=== PATIENT | male | born 1975 | race African-American/Black ===

== ENCOUNTER 2021-03-28 11:25 | Inpatient (IN) | payer BC, SELFPAY ==
[2021-03-28 12:33] LABS: Absolute Lymphocytes (CBC) 1.6 K/uL (0.7-4.9); Basophils % 1.4 % (0-1.3); Lymphocytes % 19.2 % (15.3-44.8); MPV 10.1 fL (7.6-11.3); RBC Red Blood Cell Count 4.63 M/uL (4.33-5.43)
[2021-03-28 12:46] LABS: Protime INR 1.09
[2021-03-28] MEDS ORDERED: cloNIDine HCL 0.1 MG TAB ONE (13:07)
[2021-03-28] MEDS ORDERED: AMLODIPINE 10 MG TAB ONE (13:07)
[2021-03-28 13:12] LABS: Albumin 3.6 g/dL (3.4-5.0); Bilirubin Direct 0.1 mg/dL (0-0.2); Bilirubin Total 0.5 mg/dL (0.2-1.0); Magnesium 1.8 mg/dL (1.8-2.4); Protein, Total 7.7 g/dL (6.4-8.2); Troponin (Emerg Dept Use Only) 0.09 ng/mL (0.0-0.045)
[2021-03-28 13:13] LABS: Potassium 2.9 mmol/L (3.5-5.1)
--- NOTE | 2021-03-28 13:47 | RAD REPORT ---
EXAM DESCRIPTION: RAD - Chest Single View - 03/28/2021 1:41 pm CLINICAL HISTORY: PAIN Chest pain. COMPARISON: Chest Single View dated 11/23/2016 FINDINGS: Portable technique limits examination quality. Interstitial lung prominence is present which may represent a viral infection or bronchitis. The hear t is normal in size. No displaced fractures.
[2021-03-28] MEDS ORDERED: KCL 20 MEQ/100 mL IVPB 20 MEQ/100 ML BAG IV ONE (13:52)
[2021-03-28] MEDS ORDERED: POTASSIUM CL SA 10 MEQ TAB PO ONE (13:52)
[2021-03-28] MEDS ORDERED: MORPHINE 4 MG/ML SYR ONE (13:57)
[2021-03-28] MEDS ORDERED: NA CHLORIDE 0.9% 250 ML ONE (14:19)
--- NOTE | 2021-03-28 14:51 | EDPHYS ---
Physician Documentation [facility] Name: John Bustos Age: 45 yrs Sex: Male : 1975 Arrival Date: 03/28/2021 Time: 11:30 Bed 19 Private MD: ED Physician West Munson HPI: 03/28 14:13 This 45 yrs old Black Male presents to ER via Ambulatory with complaints of Side Pain W jr8 Cough, Shortness Of Breath. 14:13 Onset: The symptoms/episode began/occurred gradually, 2 day(s) ago. Associated signs jr8 and symptoms: The patient has no apparent associated signs or symptoms. The patient has not experienced similar symptoms in the past. The patient has not recently seen a physician. This is a 45-year-old male patient that came to the emergency room today for increased pain on both his sides of his chest with shortness of breath and had fever development this morning. Also having substernal pressure in his chest. Patient with marked hypertension upon arrival. Has been out of his meds.. Historical: - Allergies: 11:49 PENICILLINS; jl7 - Home Meds: 11:49 clonidine HCl 0.1 mg Oral tab 1 tab 3 times per day [Active]; Lisinopril 12.5 BID Oral jl7 [Active]; - PMHx: 11:49 Hypertension; jl7 - Immunization history:: Adult Immunizations up to date, Client reports receiving the 2nd dose of the Covid vaccine. - Social history:: Smoking status: Patient reports the use of cigarette tobacco products. ROS: 14:13 Eyes: Negative for injury, pain, redness, and discharge, ENT: Negative for injury, jr8 pain, and discharge, Neck: Negative for injury, pain, and swelling, Abdomen/GI: Negative for abdominal pain, nausea, vomiting, diarrhea, and constipation, Back: Negative for injury and pain, MS/Extremity: Negative for injury and deformity, Skin: Negative for injury, rash, and discoloration, Neuro: Negative for headache, weakness, numbness, tingling, and seizure. 14:13 Cardiovascular: Positive for chest pain. 14:13 Respiratory: Positive for shortness of breath. 14:13 Constitutional: Positive for fever. jr8 Exam: 14:13 Eyes: Pupils equal round and reactive to light, extra-ocular motions intact. Lids and jr8 lashes normal. Conjunctiva and sclera are non-icteric and not injected. Cornea within normal limits. Periorbital areas with no swelling, redness, or edema. ENT: Nares patent. No nasal discharge, no septal abnormalities noted. Tympanic membranes are normal and external auditory canals are clear. Oropharynx with no redness, swelling, or masses, exudates, or evidence of obstruction, uvula midline. Mucous membranes moist. Neck: Trachea midline, no thyromegaly or masses palpated, and no cervical lymphadenopathy. Supple, full range of motion without nuchal rigidity, or vertebral point tenderness. No Meningismus. Cardiovascular: Tachycardic with a normal S1 and S2. No gallops, murmurs, or rubs. Normal PMI, no JVD. No pulse deficits. Respiratory: Lungs have equal breath sounds bilaterally, clear to auscultation and percussion. No rales, rhonchi or wheezes noted. No increased work of breathing, no retractions or nasal flaring. Abdomen/GI: Soft, non-tender, with normal bowel sounds. No distension or tympany. No guarding or rebound. No evidence of tenderness throughout. Back: No spinal tenderness. No costovertebral tenderness. Full range of motion. Skin: Warm, dry with normal turgor. Normal color with no rashes, no lesions, and no evidence of cellulitis. MS/ Extremity: Pulses equal, no cyanosis. Neurovascular intact. Full, normal range of motion. Neuro: Awake and alert, GCS 15, oriented to person, place, time, and situation. Cranial nerves II-XII grossly intact. Motor strength 5/5 in all extremities. Sensory grossly intact. 14:13 Chest/axilla: Inspection: normal, Palpation: tenderness, that is mild, of the right lateral anterior chest and left lateral anterior chest, that partially reproduces the patient's complaints. Vital Signs: 11:45 BP 175 / 124; Pulse 108; Resp 20; Temp 98.4; Pulse Ox 97% on R/A; Weight 126.1 kg; jl7 Height 6 ft. 2 in. (187.96 cm); Pain 9/10; 12:33 BP 175 / 124; Pulse 108; Resp 20; Temp 98.4; Pulse Ox 97% on R/A; kh1 14:22 BP 160 / 120; Pulse 68; Resp 20; Temp 98.0(TE); Pulse Ox 99% on R/A; kh1 11:45 Body Mass Index 35.69 (126.10 kg, 187.96 cm) jl7 MDM: 12:02 Patient medically screened. jr8 14:13 Data reviewed: vital signs, nurses notes, lab test result(s), EKG, radiologic studies, jr8 plain films. Data interpreted: Pulse oximetry: on room air is 97 %. Interpretation: normal. Counseling: I had a detailed discussion with the patient and/or guardian regarding: the historical points, exam findings, and any diagnostic results supporting the discharge/admit diagnosis, lab results, radiology results, the need for further work-up and treatment in the hospital. 14:24 ED course: Discussed with patient that he does have Covid. That there is concern now jr8 that his elevation in troponin is non-Covid related as he is not hypoxic and just began with other typical Covid symptoms. Patient had been markedly hypertensive here with also substernal chest pressure. Cannot fully rule out cardiac related ischemia given this picture. Advised that we should really sobs and have cardiology see him.. 03/28 11:52 Order name: Basic Metabolic Panel; Complete Time: 13:14 [facility] 03/28 11:52 Order name: CBC with Diff; Complete Time: 12:41 [facility] 03/28 11:52 Order name: LFT's; Complete Time: 13:14 [facility] 03/28 11:52 Order name: Magnesium; Complete Time: 13:14 [facility] 03/28 11:52 Order name: NT PRO-BNP; Complete Time: 13:14 [facility] 03/28 11:52 Order name: PT-INR; Complete Time: 13:07 03/28 11:52 Order name: Troponin (emerg Dept Use Only); Complete Time: 13:14 [facility] 03/28 14:05 Order name: SARS-COV-2 RT PCR; Complete Time: 14:16 [facility] 03/28 17:39 Order name: Hemoglobin A1c; Complete Time: 18:09 [facility] 03/28 19:08 Order name: Troponin I; Complete Time: 20:27 [facility] 03/28 19:14 Order name: Lipid Profile; Complete Time: 20:27 [facility] 03/28 19:26 Order name: T4 Free; Complete Time: 20:27 [facility] 03/28 19:26 Order name: Thyroid Stimulating Hormone; Complete Time: 20:27 [facility] 03/28 11:52 Order name: XRAY Chest (1 view); Complete Time: 14:04 [facility] 03/28 11:52 Order name: EKG; Complete Time: 11:55 [facility] 03/28 11:52 Order name: Cardiac monitoring; Complete Time: 12:35 [facility] 03/28 11:52 Order name: EKG - Nurse/Tech; Complete Time: 12:35 [facility] 03/28 11:52 Order name: IV Saline Lock; Complete Time: 12:35 [facility] 03/28 11:52 Order name: Labs collected and sent; Complete Time: 12:35 [facility] 03/28 11:52 Order name: O2 Per Protocol; Complete Time: 12:35 [facility] 03/28 11:52 Order name: O2 Sat Monitoring; Complete Time: 12:35 [facility] Administered Medications: 12:46 Drug: Norvasc (amlodipine) 10 mg Route: PO; kh1 12:46 Drug: cloNIDine 0.1 mg Route: PO; kh1 13:40 Drug: morphine 4 mg Route: IVP; Site: right antecubital; kh1 13:41 Drug: Potassium Chloride 40 mEq Route: PO; kh1 13:50 Drug: Potassium Chloride 20 mEq Route: IV; Rate: calculated rate; Site: left forearm; kh1 15:20 Drug: Aspirin Chewable Tablet 324 mg Route: PO; kh1 Disposition Summary: 03/28/21 14:51 Hospitalization Ordered Hospitalization Status: Observation [facility] Provider: Quan Munson Location: Telemetry/MedSur (observation) [facility] Condition: Stable [facility] Problem: new jr8 Symptoms: have improved [facility] Bed/Room Type: Standard [facility] Room Assignment: 413(03/28/21 17:14) dw Diagnosis - Subsequent non-ST elevation (NSTEMI) myocardial infarction jr8 - SARS-associated coronavirus as the cause of diseases classified elsewhere [facility] Forms: - Medication Reconciliation Form jr8 - SBAR form jr8 Addendum: 04/02/2021 08:25 Co-signature as Attending Physician, West Munson MD. r n 08:25 I agree with the assessment and plan of care. Attestation: The patient's history, exam r n findings, diagnostics, and a summary of any interventions or procedures was reviewed in detail with Raghu HOUSER. Signatures: Dispatcher [employer] EDMS Adriana Truong RN RN dw West Munson MD MD rn Roszak, Josh, PA PA jr8 Bart Page RN RN jl7 Silvana Martin 1 Corrections: (The following items were deleted from the chart) 03/28 11:50 11:49 Home Meds: unknown BP med; adama jl7 13:04 12:38 CORONAVIRUS+MR.LAB.BRZ ordered. EDPR EDMS 17:14 14:51 jr8 mihaela
--- NOTE | 2021-03-28 14:51 | ER ---
Nurse's Notes [facility] Name: John Bustos Age: 45 yrs Sex: Male : 1975 Arrival Date: 03/28/2021 Time: 11:30 Bed 19 Private MD: Diagnosis: Subsequent non-ST elevation (NSTEMI) myocardial infarction;SARS-associated coronavirus as the cause of diseases classified elsewhere Presentation: 03/28 11:45 Chief complaint: Patient states: Coughing x 1 day, reports bilateral side pain/soreness jl7 from coughing, intermittent left sided chest pain since 0400 this morning; suppose to take htn medication but hasn't taken it in 4 days. Coronavirus screen: Vaccine status: Patient reports receiving the 2nd dose of the covid vaccine. Date January 2021 Pfizer cough unrelated to allergies, Client presents with at least one sign or symptom that may indicate coronavirus-19. Standard/surgical mask placed on the client. Provider contacted for isolation considerations. Ebola Screen: No symptoms or risks identified at this time. Initial Sepsis Screen: Does the patient meet any 2 criteria? No. Patient's initial sepsis screen is negative. Does the patient have a suspected source of infection? No. Patient's initial sepsis screen is negative. Risk Assessment: Do you want to hurt yourself or someone else? Patient reports no desire to harm self or others. Onset of symptoms was March 27, 2021. Care prior to arrival: None. 11:45 Method Of Arrival: Ambulatory jl7 11:45 Acuity: AC 2 jl7 Triage Assessment: 11:49 General: Appears in no apparent distress. uncomfortable, Behavior is calm, cooperative, jl7 appropriate for age. Pain: Complains of pain in left breast Pain currently is 9 out of 10 on a pain scale. Respiratory: Reports cough that is Onset: The symptoms/episode began/occurred yesterday, the patient has mild shortness of breath. Historical: - Allergies: 11:49 PENICILLINS; jl7 - Home Meds: 11:49 clonidine HCl 0.1 mg Oral tab 1 tab 3 times per day [Active]; Lisinopril 12.5 BID Oral jl7 [Active]; - PMHx: 11:49 Hypertension; jl7 - Immunization history:: Adult Immunizations up to date, Client reports receiving the 2nd dose of the Covid vaccine. - Social history:: Smoking status: Patient reports the use of cigarette tobacco products. Screenin:34 Abuse screen: Denies threats or abuse. Nutritional screening: No deficits noted. kh1 Tuberculosis screening: No symptoms or risk factors identified. Fall Risk None identified. Assessment: 12:33 General: Appears in no apparent distress. uncomfortable, Behavior is calm, cooperative, kh1 appropriate for age. Pain: Complains of pain in abdomen Pain does not radiate. Pain currently is 10 out of 10 on a pain scale. Quality of pain is described as sharp, Aggravated by coughing. Cardiovascular: Reports nausea, shortness of breath, vomiting, Denies chest pain, Rhythm is sinus tachycardia. Respiratory: Airway is patent Respiratory effort is even, unlabored, Breath sounds are clear. 14:22 Reassessment: Patient appears in no apparent distress at this time. No changes from [facility] previously documented assessment. Patient and/or family updated on plan of care and expected duration. Pain level reassessed. Patient is alert, oriented x 3, equal unlabored respirations, skin warm/dry/pink. Vital Signs: 11:45 BP 175 / 124; Pulse 108; Resp 20; Temp 98.4; Pulse Ox 97% on R/A; Weight 126.1 kg; jl7 Height 6 ft. 2 in. (187.96 cm); Pain 9/10; 12:33 BP 175 / 124; Pulse 108; Resp 20; Temp 98.4; Pulse Ox 97% on R/A; kh1 14:22 BP 160 / 120; Pulse 68; Resp 20; Temp 98.0(TE); Pulse Ox 99% on R/A; kh1 11:45 Body Mass Index 35.69 (126.10 kg, 187.96 cm) jl7 ED Course: 11:30 Patient arrived in ED. ds1 11:49 Triage completed. jl7 11:49 Arm band placed on right wrist. jl7 11:51 Raghu Marshall PA is PHCP. jr8 11:52 West Munson MD is Attending Physician. jr8 12:32 Silvana Martin is Primary Nurse. kh1 12:34 Patient has correct armband on for positive identification. Bed in low position. Call [facility] light in reach. Side rails up X2. 12:34 No provider procedures requiring assistance completed. Inserted saline lock: 20 gauge kh1 in left antecubital area, using aseptic technique. Blood collected. 12:35 Basic Metabolic Panel Sent. kh1 12:35 LFT's Sent. kh1 12:36 Magnesium Sent. kh1 12:36 NT PRO-BNP Sent. kh1 12:36 PT-INR Sent. kh1 12:36 Troponin (emerg Dept Use Only) Sent. kh1 13:41 XRAY Chest (1 view) In Process Unspecified. EDMS 14:51 Quan Munson MD is Hospitalizing Provider. jr8 Administered Medications: 12:46 Drug: Norvasc (amlodipine) 10 mg Route: PO; kh1 12:46 Drug: cloNIDine 0.1 mg Route: PO; kh1 13:40 Drug: morphine 4 mg Route: IVP; Site: right antecubital; kh1 13:41 Drug: Potassium Chloride 40 mEq Route: PO; kh1 13:50 Drug: Potassium Chloride 20 mEq Route: IV; Rate: calculated rate; Site: left forearm; kh1 15:20 Drug: Aspirin Chewable Tablet 324 mg Route: PO; kh1 Outcome: 14:51 Decision to Hospitalize by Provider. jr8 19:37 Patient left the ED. bc5 Signatures: Dispatcher [employer] EDNV Phuong Brooks Raghu Bryne PA PA jr8 Bart Page RN RN Silvana Yee kh1 Mami Rao, RN RN bc5 Corrections: (The following items were deleted from the chart) 11:50 11:49 Home Meds: unknown BP med; adama galan 13:04 12:53 CORONAVIRUS+ drawn and sent. [facility] EDMS
[2021-03-28] MEDS ORDERED: LABETALOL 20 MG/4ML SYRINGE IV PRN (15:41)
[2021-03-28] MEDS ORDERED: ASPIRIN 81 MG CHEWABLE TABLET ONE ×2 (15:42→15:50)
[2021-03-28] MEDS ORDERED: NA CHLORIDE 0.9% 500 ML ONE (15:52)
[2021-03-28] MEDS ORDERED: GUAIFENESIN/CODEINE 5ML UCUP PO PRN (15:57)
[2021-03-28] MEDS ORDERED: ACETAMINOPHEN 500 MG TAB PO PRN (15:59)
[2021-03-28] MEDS ORDERED: ONDANSETRON 4 MG/2 ML VIAL IV PRN (15:59)
[2021-03-28] MEDS ORDERED: HEPARIN/D5W 25,000 UNIT/500 ML BAG IV PRN (16:00)
--- NOTE | 2021-03-28 16:15 | P.HP ---
Certification for Inpatient Patient admitted to: Inpatient With expected LOS: >2 Midnights Patient will require the following post-hospital care: None Practitioner: I am a practitioner with admitting privileges, knowledge of patient current condition, hospital course, and medical plan of care. Services: Services provided to patient in accordance with Admission requirements found in Title 42 Section 412.3 of the Code of Federal Regulations Patient History Date of Service: 03/28/21 Reason for admission: Chest pain History of Present Illness: Patient is 45-year-old male with a past medical history significant for hypertension, obesity presents with complaint of chest pain located in the substernal chest area and left chest wall. Patient rated pain as 9/10 and described pain as pressure in quality. Patient reported that initially he developed cough 4 days ago with associated signs and symptoms of diarrhea, lightheadedness, diaphoresis, loss of smell\taste, shortness of breath, headache, nausea and vomiting. Patient reports pain on the bilateral sides of his rib cage. Patient denies any other signs and symptoms. Symptoms are aggravated or relieved by nothing. Patient decided to present to the hospital due to worsening symptoms. Of note, patient has not been compliant with his home medications. Allergies Penicillins Allergy (Unverified 11/23/16 17:32) Unknown Home medications list reviewed: Yes - Past Medical/Surgical History Diabetic: No -: HTN -: Obesity Past Surgical History: Reviewed- Non-Contributory - Family History Family History: Reviewed- Non-Contributory (Reviewed and patient unaware of any family history.) - Social History Smoking Status: Current some day smoker Smoking therapy provided: Yes Patient receptive to therapy: Yes Alcohol use: Yes CD- Drugs: No Caffeine use: No Place of Residence: Home Review of Systems General: As per HPI Eyes: Unremarkable ENT: Unremarkable Respiratory: Cough, Shortness of Breath, SOB with Excertion Cardiovascular: Chest Pain, Light Headedness Gastrointestinal: Nausea, Vomiting, Diarrhea Genitourinary: Unremarkable Musculoskeletal: Unremarkable Integumentary: Unremarkable Neurological: Unremarkable Lymphatics: Unremarkable Physical Examination - Physical Exam General: Alert, In no apparent distress, Oriented x3 HEENT: Atraumatic, PERRLA, Mucous membr. moist/pink, EOMI, Sclerae nonicteric Neck: Supple, 2+ carotid pulse no bruit, No LAD, Without JVD or thyroid abnormality Respiratory: Diminished Cardiovascular: Regular rate/rhythm, Normal S1 S2 Capillary refill: >2 Seconds Gastrointestinal: Normal bowel sounds, No tenderness Musculoskeletal: No clubbing, No tenderness Integumentary: No rashes, No breakdown Neurological: Normal gait, Normal speech, Normal tone, Normal affect Lymphatics: No axilla or inguinal lymphadenopathy External genitalia: Deferred Rectal: Deferred - Studies Laboratory Data (last 24 hrs) 03/28/21 12:15: PT 12.5, INR 1.09 03/28/21 12:15: WBC 8.20, Hgb 13.0 L, Hct 39.0 L, Plt Count 255 03/28/21 12:15: Sodium 142, Potassium 2.9 L*, BUN 13, Creatinine 1.11, Glucose 117 H, Magnesium 1.8, Total Bilirubin 0.5, AST 22, ALT 36, Alkaline Phosphatase 90 Assessment and Plan - Plan --Chest pain of unclear etiology. NSTEMI is a possible differential. We will continue to trend serial troponins. Cardiology consulted. Echocardiogram to as sess LV\valvular function and wall motion. Telemetry to monitor for any significant arrhythmia. We will further recommendations from it project manager. --Suspected pericarditis. Sharepoint Designer Developer of the opinion that chest pain is likely pericarditis. Patient placed on colchicine. Echocardiogram pending. We will await further recommendation from it project manager. --Hypertension. Poorly controlled. Patient not compliant with home medications. Echocardiogram pending. Patient placed on home medications and labetalol as needed. --Hypokalemia. Replete as needed. Will reassess levels in a.m. --Class III obesity. Likely secondary to excess calories intake. Patient counseled on weight reduction, diet and exercise therapy. --COVID-19 pneumonia. Steerer consulted. Continue steroids, O2 therapy and oral supplements. Will await further recommendation from children's tutor nursery. --COVID-19 infection. Continue current treatment regimen. Continue contact and airborne precautions. --Moderate persistent asthma exacerbation. Continue current treatment regimen. Continue albuterol inhaler. --Nicotine dependence. Patient counseled on tobacco cessation. Refuses nicotine patch. --Elevated BNP. Echocardiogram pending to assess for CHF. Further management per it project manager. --DVT prophylaxis with Lovenox subQ I have had discussion about advanced directives with the patient during this hospital admission. Addressed code status and goals of care. Spent more than 30 minutes. Case discussed withpatient and nurse. The following document was completed using voice recognition software. This can produce industrial cafeteria manager errors that can at times significantly distort words and phrases. Please interpret any aspect of the note that is nonsensical in light of this fact. Discharge Plan: Home Plan to discharge in: 48 Hours - Advance Directives Does patient have a Living Will: No Does patient have a Durable POA for Healthcare: No - Code Status/Comfort Care Code Status Assessed: Yes Code Status: Full Code Critical Care: No
[2021-03-28] MEDS ORDERED: METHYLPREDNISOLONE 40 MG INJ IV SCH (17:00)
[2021-03-28] MEDS: HYDROCODONE/APAP 10/325 TAB PO PRN ×2 (17:28→22:19)
[2021-03-28] MEDS: METOPROLOL TAR 25 MG TAB PO SCH (17:28)
[2021-03-28] MEDS ORDERED: METOPROLOL TAR 25 MG TAB ONE (17:47)
[2021-03-28] MEDS ORDERED: LABETALOL HCL 100 MG/20 ML ONE (17:47)
[2021-03-28] MEDS ORDERED: HYDROCODONE/APAP 10/325 TAB ONE (17:47)
[2021-03-28] MEDS ORDERED: GUAIFENESIN/DM 5 ML UCUP ONE (17:55)
[2021-03-28 18:46] VITALS: BMI 35.6
[2021-03-28 19:25] LABS: Thyroid Stimulating Hormone 2.44 uIU/mL (0.360-3.740)
[2021-03-28] MEDS ORDERED: ALBUTEROL INHALER 60 PUFF/8 GM IH SCH (20:00)
[2021-03-28] MEDS: ASCORBIC ACID 500 MG TABLET PO SCH (20:40)
[2021-03-28] MEDS: cloNIDine HCL 0.1 MG TAB PO SCH (20:40)
[2021-03-28] MEDS: lisinopriL 10 MG TAB PO SCH (20:41)
[2021-03-28] MEDS: FAMOTIDINE 20 MG TAB PO SCH (20:59)
[2021-03-28] MEDS ORDERED: MELATONIN 5 MG TABLET PO SCH (21:00)
[2021-03-28] MEDS: DULERA 200/5 (MOMETASONE/FORMOTEROL) INHALER IH SCH (21:00)
[2021-03-28] MEDS: Enoxaparin 120 MG/0.8 ML SYR SQ ONE (21:00)
[2021-03-28] MEDS ORDERED: ATORVASTATIN 40 MG TAB PO SCH (21:00)
[2021-03-28] MEDS ORDERED: MELATONIN 5 MG TABLET PO ONE (21:36)
[2021-03-28] MEDS: COLCHICINE 0.6 MG TAB PO SCH (22:20)
[2021-03-29 00:41] VITALS: O2SAT 96
[2021-03-29 05:05] LABS: Absolute Lymphocytes (CBC) 2.5 K/uL (0.7-4.9); Basophils % 1.2 % (0-1.3); Lymphocytes % 30.8 % (15.3-44.8); MPV 10.4 fL (7.6-11.3); RBC Red Blood Cell Count 4.35 M/uL (4.33-5.43)
[2021-03-29 05:18] LABS: BUN Blood Urea Nitrogen 13 mg/dL (7-18); Bicarbonate 31 mmol/L (21-32); Glucose Level 113 mg/dL (74-106); NT PRO-BNP 676 pg/mL (<125); Sodium Level 141 mmol/L (136-145)
[2021-03-29] MEDS: METOPROLOL TAR 25 MG TAB PO SCH (06:02)
[2021-03-29] MEDS: KCL 20 MEQ/100 mL IVPB 20 MEQ/100 ML BAG IV SCH ×2 (06:02→08:30)
--- NOTE | 2021-03-29 06:14 | P.PN ---
Subjective Date of Service: 03/29/21 Primary Care Provider: none Chief Complaint: Chest pain Subjective: Improving Physical Examination - Vital Signs Temperature: 96.9 F Blood Pressure: 131/63 Pulse: 73 Respirations: 20 Pulse Ox (%): 96 - Studies Laboratory Data (last 24 hrs) 03/28/21 12:15: PT 12.5, INR 1.09 03/28/21 12:15: WBC 8.20, Hgb 13.0 L, Hct 39.0 L, Plt Count 255 03/28/21 12:15: Sodium 142, Potassium 2.9 L*, BUN 13, Creatinine 1.11, Glucose 117 H, Magnesium 1.8, Total Bilirubin 0.5, AST 22, ALT 36, Alkaline Phosphatase 90 Assessment & Plan Discharge Plan: Home Plan to discharge in: 24 Hours Physician Review Additional Text: COVID: Positive CXR: COMPARISON: Chest Single View dated 11/23/2016 FINDINGS: Portable technique limits examination quality. Interstitial lung prominence is present which may represent a viral infection or bronchitis. The heart is normal in size. No displaced fractures. Physical Exam: General: Alert, In no apparent distress, Oriented x3 HEENT: Atraumatic, PERRLA, Mucous membr. moist/pink, EOMI, Sclerae nonicteric Neck: Supple, 2+ carotid pulse no bruit, No LAD, Without JVD or thyroid abnormality Respiratory: Clear. Currently on room air. Cardiovascular: Regular rate/rhythm, Normal S1 S2 Capillary refill: >2 Seconds Gastrointestinal: Normal bowel sounds, No tenderness Musculoskeletal: No clubbing, No tenderness Integumentary: No rashes, No breakdown Neurological: Normal gait, Normal speech, Normal tone, Normal affect Lymphatics: No axilla or inguinal lymphadenopathy External genitalia: Deferred Rectal: Deferred Impression: Chest pain likely pericarditis COVID-19 asymptomatic Asthma Tobacco and alcohol use Hypertension uncontrolled GERD noncompliance with medication Plan: Chest pain likely pericarditis: Patient doing well at this time. Case discussed with cardiology. Will transition steroids to oral. Overall stable. No intervention required. Await echocardiogram. Will discuss further with cardiology. Anticipate discharge today. Adjustments in blood pressure medication performed with good improvement.: COVID-19 asymptomatic: Overall stable. Patient on room air. Patient will continue with prednisone and supplementation at discharge. Continue Covid recommendations. Asthma: Continue with prednisone taper. Recommend Advair at discharge along with albuterol. Recommend follow-up with pulmonology as an outpatient. Tobacco and alcohol use: Cessation education provided Hypertension uncontrolled: Blood pressure improved with changes. Patient will continue with clonidine 0.1 mg 1 pill 3 times a day, lisinopril 10 mg 1 pill twice daily and metoprolol 25 mg 1 pill twice daily. Continue to titrate for better control. GERD: We will provide Pepcid 20 mg twice daily Noncompliance with medication: Compliance with his medications and follow-up will be important. DVT prophylaxis: Lovenox CODE STATUS: Full code Advance care planning: Home at discharge Time Spent Managing Pts Care (In Minutes): 55
[2021-03-29 07:08] LABS: C-Reactive Protein 9.61 mg/L (<3.00); Ferritin 115.7 ng/mL (26-388)
[2021-03-29] MEDS ORDERED: NA CHLORIDE 0.9% 250 ML ONE (07:23)
[2021-03-29] MEDS: cloNIDine HCL 0.1 MG TAB PO SCH (08:42)
[2021-03-29] MEDS: lisinopriL 10 MG TAB PO SCH (08:43)
[2021-03-29] MEDS: FAMOTIDINE 20 MG TAB PO SCH (08:43)
[2021-03-29] MEDS: ASCORBIC ACID 500 MG TABLET PO SCH (08:43)
[2021-03-29] MEDS: DULERA 200/5 (MOMETASONE/FORMOTEROL) INHALER IH SCH (08:44)
[2021-03-29] MEDS: HYDROCODONE/APAP 10/325 TAB PO PRN (08:54)
[2021-03-29] MEDS ORDERED: ASPIRIN 81 MG CHEWABLE TABLET PO SCH (09:00)
[2021-03-29] MEDS ORDERED: VITAMIN D 5,000 UNIT CAP PO SCH (09:00)
[2021-03-29] MEDS ORDERED: ZINC SULFATE 220 MG CAP PO SCH (09:00)
[2021-03-29] MEDS ORDERED: THIAMINE HCL 100 MG TABLET PO SCH (09:00)
[2021-03-29] MEDS ORDERED: ENOXAPARIN 40 MG/0.4 ML SQ SCH ×2 (09:00)
--- NOTE | 2021-03-29 09:44 | P.DS ---
Admission Date: 03/28/21 Discharge Date: 03/29/21 Primary Care Provider: none Disposition: ROUTINE DISCHARGE Discharge Condition: GOOD Reason for Admission: Chest pain Consultations: Cardiology-Dr. Prajapati Procedures: COVID: Positive CXR: COMPARISON: Chest Single View dated 11/23/2016 FINDINGS: Portable technique limits examination quality. Interstitial lung prominence is present which may represent a viral infection or bronchitis. The heart is normal in size. No displaced fractures. Medical Problem List: Chest pain likely pericarditis COVID-19 asymptomatic Asthma Tobacco and alcohol use Hypertension uncontrolled GERD Hyperlipidemia Prediabetes Noncompliance with medication Brief History of Present Illness: 85-year-old -[place] male with history of hypertension, tobacco use, alcohol use, and asthma. Patient presented with chest pain mainly to the left side. It is associated with cough. Patient came to the ER for further evaluation. Patient was positive for Covid. Patient stable on room air. Patient admitted for further evaluation and treatment. Patient reports noncompliant with his hypertensive medication. Blood pressure elevated. Hospital Course: Patient presented with chest pain. Patient was admitted for further evaluation and observation. Case discussed with cardiology. Cardiology suspected pericarditis. Patient was placed on IV steroids with improvement. Echocardiogram performed. No further intervention required. Blood pressures were elevated requiring reinitiation of his medications and additional medication. Blood pressure now better controlled. At discharge patient without significant chest pain. At discharge patient will continue with prednisone 20 mg 1 pill twice daily for 7 days then 1 pill once daily for 7 days. Recommend vitamin C 500 mg 1 pill 3 times a day, vitamin D 2000 units daily, thiamine 100 mg 1 pill daily, and zinc 220 mg daily. Patient will continue with Covid 19 recommendations including 10-day isolation, facemask use, handwashing and social distancing. Recommend follow-up with cardiology within 1 to 2 weeks to follow- up his hospitalization. Compliance with his medications addressed in detail. Patient will need to establish care with a PCP in the area to follow-up this hospitalization and continue his care. Patient with hypertension uncontrolled due to noncompliance. Compliance was addressed in detail. Patient understands. At discharge patient will continue with clonidine 0.1 mg 1 pill 3 times a day, lisinopril 10 mg 1 pill twice daily, and metoprolol 25 mg 1 pill twice daily. Patient will also continue with aspirin 81 mg daily. Recommend to maintain blood pressure less than 130/80. Further adjustment in medication may be required. This can be done with the help of his PCP or cardiology. Patient will need to establish care with a PCP in the area. A list of providers will be provided. Patient with asthma. Patient treated with IV steroids with improvement. At discharge patient will continue with prednisone 20 mg 1 pill twice daily for 7 days then 1 pill once daily for 7 days. At discharge patient will also be provided Symbicort 2 puffs twice daily and albuterol 2 puffs 3 times a day as needed for shortness of breath. Recommend follow-up with pulmonology as an outpatient to further monitor and adjust medication. Patient with tobacco and alcohol use. Cessation education provided. Patient understands that he needs to quit both due to his current medical problems. Patient with hyperlipidemia. LDL 127. Patient was started on medication. At discharge patient will continue with Lipitor 20 mg 1 pill daily. Recommend to recheck fasting lipid panel in 4 to 6 weeks to monitor his progress. Further adjustment can be done by his PCP or cardiology. Patient with GERD. At discharge patient may continue with Pepcid 20 mg 1 pill twice daily. GERD education provided. Patient with prediabetes. Hemoglobin A1c 6.0. No medication is needed at this time. Education on prediabetes provided. Recommend to recheck hemoglobin A1c in 3 to 6 months to monitor his progress. Patient may require medication in the future. Recommend to establish care with a PCP to further monitor and address. Patient with history of noncompliance with medication and follow-up. Patient will be given a list of providers in the area to establish care. Compliance with his medication addressed in detail. Vital Signs/Physical Exam: Temp Pulse Resp BP Pulse Ox 96.9 F 73 20 131/63 96 03/29/21 09:38 03/29/21 09:38 03/29/21 09:38 03/29/21 09:38 03/29/21 09:38 General: Alert, In no apparent distress, Oriented x3, Cooperative HEENT: Atraumatic Neck: Supple Respiratory: Clear to auscultation bilaterally, Normal air movement Cardiovascular: Normal pulses, Regular rate/rhythm Gastrointestinal: Normal bowel sounds, No ascites Musculoskeletal: No erythema, No tenderness, No warmth Integumentary: No tenderness/swelling Neurological: Normal speech, Normal strength at 5/5 x4 extr, Normal tone Laboratory Data at Discharge: WBC 8.20 K/uL (4.3-10.9) 03/29/21 04:09 Hgb 12.4 g/dL (13.6-17.9) L 03/29/21 04:09 Hct 37.0 % (39.6-49.0) L 03/29/21 04:09 Plt Count 233 K/uL (152-406) 03/29/21 04:09 PT 12.5 SECONDS (9.5-12.5) 03/28/21 12:15 INR 1.09 03/28/21 12:15 Sodium 141 mmol/L (136-145) 03/29/21 04:09 Potassium Cancelled 03/29/21 Unknown BUN 13 mg/dL (7-18) 03/29/21 04:09 Creatinine 0.97 mg/dL (0.55-1.3) 03/29/21 04:09 Glucose 113 mg/dL (74-106) H 03/29/21 04:09 Magnesium 1.8 mg/dL (1.8-2.4) 03/28/21 12:15 Total Bilirubin 0.5 mg/dL (0.2-1.0) 03/28/21 12:15 AST 22 U/L (15-37) 03/28/21 12:15 ALT 36 U/L (12-78) 03/28/21 12:15 Alkaline Phosphatase 90 U/L (45-117) 03/28/21 12:15 Troponin I 0.08 ng/mL (0.0-0.045) H 03/29/21 00:07 Triglycerides 91 mg/dL (<150) 03/28/21 18:36 Cholesterol 186 mg/dL (<200) 03/28/21 18:36 HDL Cholesterol 41 mg/dL (40-60) 03/28/21 18:36 Cholesterol/HDL Ratio 4.54 03/28/21 18:36 Home Medications: Albuterol Inhaler [Ventolin Inhaler*] 2 puff IH TID PRN #1 hfa.aer.ad 03/29/21 Ascorbic Acid [Vitamin C*] 500 mg PO TID #90 tablet 03/29/21 Aspirin [Aspirin EC 81 MG] 81 mg PO DAILY #30 tablet. 03/29/21 Atorvastatin Calcium [Lipitor] 20 mg PO BEDTIME #30 tab 03/29/21 Budesonide/Formoterol Fumarate [Symbicort 160-4.5 Mcg Inhaler] 2 puff IH BID #1 hfa.aer.ad 03/29/21 Famotidine [Pepcid*] 20 mg PO BID #60 tab 03/29/21 Metoprolol Tartrate [Lopressor*] 25 mg PO BID 6AM 6PM #60 tab 03/29/21 Thiamine HCl [Vitamin B-1*] 100 mg PO DAILY #30 tablet 03/29/21 Zinc Sulfate [Zinc Sulfate*] 220 mg PO DAILY #30 cap 03/29/21 cloNIDine HCL [Catapres*] 0.1 mg PO TID #90 tab 03/29/21 lisinopriL [Prinivil*] 10 mg PO BID #60 tab 03/29/21 predniSONE [Prednisone*] 20 mg PO SEECOM #21 tab 03/29/21 New Medications: Aspirin [Aspirin EC 81 MG] 81 mg PO DAILY #30 tablet. cloNIDine HCL [Catapres*] 0.1 mg PO TID #90 tab Atorvastatin Calcium [Lipitor] 20 mg PO BEDTIME #30 tab Metoprolol Tartrate [Lopressor*] 25 mg PO BID 6AM 6PM #60 tab Famotidine [Pepcid*] 20 mg PO BID #60 tab predniSONE [Prednisone*] 20 mg PO SEECOM #21 tab lisinopriL [Prinivil*] 10 mg PO BID #60 tab Budesonide/Formoterol Fumarate [Symbicort 160-4.5 Mcg Inhaler] 2 puff IH BID #1 hfa.aer.ad Albuterol Inhaler [Ventolin Inhaler*] 2 puff IH TID PRN #1 hfa.aer.ad PRN Reason: Shortness Of Breath Thiamine HCl [Vitamin B-1*] 100 mg PO DAILY #30 tablet Ascorbic Acid [Vitamin C*] 500 mg PO TID #90 tablet Zinc Sulfate [Zinc Sulfate*] 220 mg PO DAILY #30 cap Physician Discharge Instructions: Patient presented with chest pain. Patient was admitted for further evaluation and observation. Case discussed with cardiology. Cardiology suspected pericarditis. Patient was placed on IV steroids with improvement. Echocardiogram performed. No further intervention required. Blood pressures were elevated requiring reinitiation of his medications and additional medication. Blood pressure now better controlled. At discharge patient without significant chest pain. At discharge patient will continue with prednisone 20 mg 1 pill twice daily for 7 days then 1 pill once daily for 7 days. Recommend vitamin C 500 mg 1 pill 3 times a day, vitamin D 2000 units daily, thiamine 100 mg 1 pill daily, and zinc 220 mg daily. Patient will continue with Covid 19 recommendations including 10-day isolation, facemask use, handwashing and social distancing. Recommend follow-up with cardiology within 1 to 2 weeks to follow- up his hospitalization. Compliance with his medications addressed in detail. Patient will need to establish care with a PCP in the area to follow-up this hospitalization and continue his care. Patient with hypertension uncontrolled due to noncompliance. Compliance was addressed in detail. Patient understands. At discharge patient will continue with clonidine 0.1 mg 1 pill 3 times a day, lisinopril 10 mg 1 pill twice daily, and metoprolol 25 mg 1 pill twice daily. Patient will also continue with aspirin 81 mg daily. Recommend to maintain blood pressure less than 130/80. Further adjustment in medication may be required. This can be done with the help of his PCP or cardiology. Patient will need to establish care with a PCP in the area. A list of providers will be provided. Patient with asthma. Patient treated with IV steroids with improvement. At discharge patient will continue with prednisone 20 mg 1 pill twice daily for 7 days then 1 pill once daily for 7 days. At discharge patient will also be provided Symbicort 2 puffs twice daily and albuterol 2 puffs 3 times a day as needed for shortness of breath. Recommend follow-up with pulmonology as an outpatient to further monitor and adjust medication. Patient with tobacco and alcohol use. Cessation education provided. Patient understands that he needs to quit both due to his current medical problems. Patient with hyperlipidemia. LDL 127. Patient was started on medication. At discharge patient will continue with Lipitor 20 mg 1 pill daily. Recommend to recheck fasting lipid panel in 4 to 6 weeks to monitor his progress. Further adjustment can be done by his PCP or cardiology. Patient with GERD. At discharge patient may continue with Pepcid 20 mg 1 pill twice daily. GERD education provided. Patient with prediabetes. Hemoglobin A1c 6.0. No medication is needed at this time. Education on prediabetes provided. Recommend to recheck hemoglobin A1c in 3 to 6 months to monitor his progress. Patient may require medication in the future. Recommend to establish care with a PCP to further monitor and address. Patient with history of noncompliance with medication and follow-up. Patient will be given a list of providers in the area to establish care. Compliance with his medication addressed in detail. Diet: AHA Activity: Ad tami Followup: NONE,NONE [Primary Care Provider] - Time spent managing pt's care (in minutes): 55
[2021-03-29] MEDS ORDERED: PNEUMOCOCCAL VACCINE 0.5 ML IMVAC ONE (11:00)
[2021-03-29 13:08] VITALS: BP 133/83; TEMP 97.9
[2021-03-29] MEDS: COLCHICINE 0.6 MG TAB PO SCH (13:17)
--- NOTE | 2021-03-30 07:55 | ECHO ---
HEIGHT: 6 ft 2 in WEIGHT: 278 lb 0.047 oz DATE OF STUDY: 03/29/[address]: Topher Garcia 2-DIMENSIONAL: YES M.MODE: YES DOPPLER: YES COLOR FLOW: YES TDS: PORTABLE: DEFINITY: BUBBLE STUDY: DIAGNOSIS: CHEST PAIN CARDIAC HISTORY: CATHERIZATION: YES SURGERY: NO PROSTHETIC VALVE: NO PACEMAKER: NO MEASUREMENTS (cm) DIASTOLIC (NORMALS) SYSTOLIC (NORMALS) IVSd 1.3 (0.6-1.2) LA Diam 3.3 (1.9-4.0) LVEF 69% LVIDd 5.1 (3.5-5.7) LVIDs 3.1 (2.0-3.5) %FS 39% LVPWd 1.4 (0.6-1.2) Ao Diam 2.7 (2.0-3.7) 2 DIMENSIONAL ASSESSMENT: RIGHT ATRIUM: NORMAL LEFT ATRIUM: NORMAL RIGHT VENTRICLE: NORMAL LEFT VENTRICLE: NORMAL TRICUSPID VALVE: NORAML MITRAL VALVE: NORMAL PULMONIC VALVE: NORMAL AORTIC VALVE: NORMAL PERICARDIAL EFFUSION: NONE AORTIC ROOT: NORMAL LEFT VENTRICULAR WALL MOTION: NORMAL DOPPLER/COLOR FLOW: NORMAL COMMENTS: NORMAL LEFT VENTRICULAR EJECTION FRACTION 60-65%. NORMAL WALL MOTION. TECHNOLOGIST: AUSTIN PARISI
--- NOTE | 2021-04-02 13:19 | CON ---
Date of Consultation: 03/28/2021 Reason For Consultation: Admitted to Dr. Tijerina on 03/28/2021 for chest pain. I saw the patient on 03/28/2021. History Of Present Illness: Mr. Bustos is a 45-year-old black male with history of hypertension for which he is supposed to be taking clonidine 3 times a day and lisinopril twice a day. Came in with c hest pain, more site pain, scattered chest pain with some shortness of breath, some fever. No cough. No chills. Denied PND, orthopnea, pedal edema, palpitation, or syncope. He has already ruled out for [place], but when he came in, his blood pressure was 175/124. Past Medical History: As stated above. Allergies: INCLUDE PENICILLIN. Review of Systems: Negative. Social History: Negative. Family History: Noncontributory. Physical Examination: Vital Signs: He was hypertensive as stated earlier, but the second pressure was 140/65. HEENT: Negative. Neck: Supple with no bruit. Chest: Clear to auscultation and percussion. Cardiac: Revealed a regular rhythm and rate. No murmurs, gallops, or rubs. Abdomen: Benign. Extremities: Revealed no clubbing, cyanosis, or edema. Diagnostic Data: He was COVID positive. Troponin of 0.09. Potassium is 2.9. BNP was 840. EKG was normal. Chest x-ray was normal. Impression And Plan: 1.Positive COVID. 2.Atypical chest pain. 3.Hypertension, poorly controlled. 4.Dyslipidemia. The patient is now on aspirin, Plavix, colchicine, labetalol, metoprolol, thiamine, zinc, clonidine, and lisinopril. I think he should have an echocardiogram, watch his blood pressure , correct his potassium. We will continue to follow him as needed if the echocardiogram is normal. If the echocardiogram is abnormal, we will consider a heart catheterization. FABIOLA/ARTHUR Voice ID: [id number] Report ID: [id number]
== END 2021-03-29 13:30 | disposition home or self-care (01) | DRG 314 ==
LOC: ER 11:25 → ERHOLD 15:20 → 4TH 19:14
PROVIDERS: ADMIT Family Medicine; ATTEND Family Medicine
DX: I31.9 Disease of pericardium, unspecified (principal); U07.1 COVID-19; J45.909 Unspecified asthma, uncomplicated; F17.210 Nicotine dependence, cigarettes, uncomplicated; Z72.89 Other problems related to lifestyle; I10 Essential (primary) hypertension; K21.9 Gastro-esophageal reflux disease without esophagitis; E78.5 Hyperlipidemia, unspecified; R73.03 Prediabetes; E66.9 Obesity, unspecified; Z68.35 Body mass index [BMI] 35.0-35.9, adult; E87.6 Hypokalemia; Z91.14 Patient's other noncompliance with medication regimen; Z88.0 Allergy status to penicillin; Z23 Encounter for immunization
CPT/HCPCS: 36415; 71045; 80048; 80061; 80076; 82728; 83036; 83735; 83880; 84439; 84443; 84484; 85025; 85610; 86140; 90471; 90732; 93005; 93306; 99284; J1650; J3480; J7040; J7050; J7606; U0003

== ENCOUNTER 2022-01-03 08:57 | Emergency (ER) | payer SELFPAY ==
[2022-01-03] MEDS ORDERED: cloNIDine HCL 0.1 MG TAB ONE (09:27)
[2022-01-03] MEDS ORDERED: lisinopriL 20 MG TAB ONE (09:27)
[2022-01-03] MEDS ORDERED: KETOROLAC 30 MG/ML INJ ONE (09:27)
--- NOTE | 2022-01-03 10:11 | RAD REPORT ---
EXAM DESCRIPTION: RAD - Knee Left 3 View - 01/03/2022 9:47 am CLINICAL HISTORY: Left knee pain FINDINGS: No fracture or dislocation is seen. Minimal narrowing medial joint space
--- NOTE | 2022-01-03 11:09 | RAD REPORT ---
EXAM DESCRIPTION: US - Extremity Nonvascular Complete - 01/03/2022 11:01 am CLINICAL HISTORY: Left knee pain COMPARISON: X-ray January 08, 2022 FINDINGS: Edema is present within the anterior soft tissue. A hematoma is not visualized. No abscess noted Small joint effusion IMPRESSION: Edema within the anterior soft tissue No hematoma seen Small joint effusion
--- NOTE | 2022-01-03 11:19 | ER ---
Nurse's Notes [facility] Name: John Bustos Age: 46 yrs Sex: Male : 1975 Arrival Date: 01/03/2022 Time: 08:59 Bed 20 Private MD: Diagnosis: Pain in left knee;Contusion of left knee Presentation: 01/03 09:12 Chief complaint: Patient states: L knee pain that began yesterday after falling from ss standing. Pt reports that the pain is worse this morning. Coronavirus screen: Client denies travel out of the [place] in the last 14 days. Ebola Screen: Patient denies exposure to infectious person. Patient denies travel to an Ebola-affected area in the 21 days before illness onset. Initial Sepsis Screen: Does the patient meet any 2 criteria? No. Patient's initial sepsis screen is negative. Does the patient have a suspected source of infection? No. Patient's initial sepsis screen is negative. Risk Assessment: Do you want to hurt yourself or someone else? Patient reports no desire to harm self or others. Onset of symptoms was January 02, 2022. 09:12 Method Of Arrival: Ambulatory ss 09:12 Acuity: AC 4 Triage Assessment: 11:53 General: Appears in no apparent distress. comfortable, Behavior is calm, cooperative, ld1 appropriate for age. Pain: Complains of pain in left leg. Historical: - Allergies: 09:14 PENICILLINS; ss - Home Meds: 09:14 "Supposed to take BP meds" [Active]; ss - PMHx: 09:14 Hypertension; Asthma; ss - PSHx: 09:14 cardiac cath, no stents placed; ss - Immunization history:: Adult Immunizations up to date. - Social history:: Smoking status: Patient reports the use of cigarette tobacco products, 1-2 cigarettes/ day. Screenin:42 Abuse screen: Denies threats or abuse. Denies injuries from another. Nutritional ld1 screening: No deficits noted. Tuberculosis screening: No symptoms or risk factors identified. Fall Risk None identified. Assessment: 09:42 Reassessment: X ray at bedside. Pt denies concerns at this time. ld1 11:51 Reassessment: Patient appears in no apparent distress at this time. Patient and/or ld1 family updated on plan of care and expected duration. Pain level reassessed. Patient is alert, oriented x 3, equal unlabored respirations, skin warm/dry/pink. Vital Signs: 09:12 BP 173 / 121; Pulse 75; Resp 16; Temp 97.8(TE); Pulse Ox 96% on R/A; Weight 122.47 kg; ss Height 6 ft. 2 in. (187.96 cm); Pain 8/10; 09:42 BP 162 / 121; Pulse 80; Resp 18; Pulse Ox 99% on R/A; Pain 6/10; ld1 10:34 BP 163 / 101; Pulse 68; Resp 18; Pulse Ox 100% on R/A; ld1 11:51 BP 155 / 96; Pulse 72; Resp 18; Pulse Ox 100% on R/A; Pain 5/10; ld1 09:12 Body Mass Index 34.67 (122.47 kg, 187.96 cm) ED Course: 08:59 Patient arrived in ED. rg4 09:00 Rian Odom MD is Attending Physician. kdr 09:12 Nahomy Lowe RN is Primary Nurse. ld1 09:14 Triage completed. ss 09:16 Arm band placed on right wrist. ss 09:42 Patient has correct armband on for positive identification. Placed in gown. Bed in low ld1 position. Call light in reach. Side rails up X2. Pulse ox on. NIBP on. Door closed. Noise minimized. 09:42 No provider procedures requiring assistance completed. Patient did not have IV access ld1 during this emergency room visit. 09:49 Knee Left 3 View XRAY In Process Unspecified. EDMS 11:02 Extremity Nonvascular Complete In Process Unspecified. EDMS Administered Medications: 09:29 Drug: Ketorolac 15 mg Route: IM; Site: right deltoid; ld1 11:52 Follow up: Response: No adverse reaction ld1 09:29 Drug: Lisinopril 20 mg Route: PO; ld1 11:52 Follow up: Response: Blood sugar is lowered ld1 09:29 Drug: cloNIDine 0.1 mg Route: PO; ld1 11:52 Follow up: Response: Blood pressure is lowered ld1 11:48 Drug: [place] (HYDROcodone-acetaminophen) (7.5 mg-325 mg) 1 tabs Route: PO; ld1 11:52 Follow up: Response: RASS: Alert and Calm (0) ld1 Medication: 09:42 VIS not applicable for this client. ld1 Outcome: 11:18 Discharge ordered by . kdr 11:51 Discharged to home ambulatory. ld1 11:51 Condition: stable 11:51 Condition: good 11:51 Discharge instructions given to patient, Instructed on discharge instructions, follow up and referral plans. Demonstrated understanding of instructions, follow-up care, medications, Prescriptions given X 2. 11:53 Patient left the ED. ld1 Signatures: Dispatcher [employer] EDMS Rian Odom MD MD kdr Abbi Crenshaw RN RN Karen Mchugh rg4 Nahomy Lowe RN RN ld1
--- NOTE | 2022-01-03 11:19 | EDPHYS ---
Physician Documentation [facility] Name: John Bustos Age: 46 yrs Sex: Male : 1975 Arrival Date: 01/03/2022 Time: 08:59 Bed 20 Private MD: ED Physician Rian Odom HPI: 01/03 09:40 This 46 yrs old Black Male presents to ER via Ambulatory with complaints of Leg Pain. kdr 09:40 This 46 yrs old Black Male presents to ER via Ambulatory with complaints of Leg Pain. kdr 09:40 The patient presents with decreased range of motion, an injury, pain, that is acute. kdr The complaints affect the left knee. Context: The problem was sustained at home, resulted from the patient falling, while standing, the patient can partially bear weight, the patient is able to ambulate, with mild difficulty. Onset: The symptoms/episode began/occurred suddenly, this morning. Modifying factors: The symptoms are alleviated by remaining still, the symptoms are aggravated by movement, weight bearing, bending knee. Associated signs and symptoms: The patient has no apparent associated signs or symptoms. Treatment prior to arrival includes: elevation of the extremity, over the counter medications. Severity of symptoms: At their worst the symptoms were moderate, severe, just prior to arrival, in the emergency department the symptoms are unchanged. The patient has not experienced similar symptoms in the past. The patient has not recently seen a physician. Patient states that he may have had a syncopal episode yesterday at home. He is not absolutely certain. He believes that at that time he hit his knee and had some discomfort. He reports that he slept last night without significant difficulty but on awaking this morning and trying to bend the knee had significant pain.. Historical: - Allergies: 09:14 PENICILLINS; ss - Home Meds: 09:14 "Supposed to take BP meds" [Active]; ss - PMHx: 09:14 Hypertension; Asthma; ss - PSHx: 09:14 cardiac cath, no stents placed; ss - Immunization history:: Adult Immunizations up to date. - Social history:: Smoking status: Patient reports the use of cigarette tobacco products, 1-2 cigarettes/ day. ROS: 09:40 Constitutional: Negative for fever, chills, and weight loss, Eyes: Negative for injury, kdr pain, redness, and discharge, ENT: Negative for injury, pain, and discharge, Neck: Negative for injury, pain, and swelling, Cardiovascular: Negative for chest pain, palpitations, and edema, Respiratory: Negative for shortness of breath, cough, wheezing, and pleuritic chest pain, Abdomen/GI: Negative for abdominal pain, nausea, vomiting, diarrhea, and constipation, Back: Negative for injury and pain, : Negative for injury, bleeding, discharge, and swelling, Skin: Negative for injury, rash, and discoloration, Neuro: Negative for headache, weakness, numbness, tingling, and seizure activity. Psych: Negative for depression, anxiety, suicide ideation, homicidal ideation, and hallucinations, Allergy/Immunology: Negative for hives, rash, and allergies, Endocrine: Negative for neck swelling, polydipsia, polyuria, polyphagia, and marked weight changes, Hematologic/Lymphatic: Negative for swollen nodes, abnormal bleeding, and unusual bruising. 09:40 MS/extremity: Positive for injury or acute deformity, decreased range of motion, pain, swelling, tenderness, of the right leg and left knee. Exam: 09:40 Constitutional: This is a well developed, well nourished patient who is awake, alert, kdr and in no acute distress. Head/Face: Normocephalic, atraumatic. Neck: Trachea midline, no thyromegaly or masses palpated, and no cervical lymphadenopathy. Supple, full range of motion without nuchal rigidity, or vertebral point tenderness. No Meningismus. Chest/axilla: Normal chest wall appearance and motion. Nontender with no deformity. No lesions are appreciated. Cardiovascular: Regular rate and rhythm with a normal S1 and S2. No gallops, murmurs, or rubs. Normal PMI, no JVD. No pulse deficits. Respiratory: Lungs have equal breath sounds bilaterally, clear to auscultation and percussion. No rales, rhonchi or wheezes noted. No increased work of breathing, no retractions or nasal flaring. Abdomen/GI: Soft, non-tender, with normal bowel sounds. No distension or tympany. No guarding or rebound. No evidence of tenderness throughout. Back: No spinal tenderness. No costovertebral tenderness. Full range of motion. Skin: Warm, dry with normal turgor. Normal color with no rashes, no lesions, and no evidence of cellulitis. Neuro: Awake and alert, GCS 15, oriented to person, place, time, and situation. Cranial nerves II-XII grossly intact. Motor strength 5/5 in all extremities. Sensory grossly intact. Cerebellar exam normal. Normal gait. Psych: Awake, alert, with orientation to person, place and time. Behavior, mood, and affect are within normal limits. 09:40 Musculoskeletal/extremity: Extremities: grossly normal except: noted in the left knee: contusion, pain, swelling, tenderness. Vital Signs: 09:12 BP 173 / 121; Pulse 75; Resp 16; Temp 97.8(TE); Pulse Ox 96% on R/A; Weight 122.47 kg; ss Height 6 ft. 2 in. (187.96 cm); Pain 8/10; 09:42 BP 162 / 121; Pulse 80; Resp 18; Pulse Ox 99% on R/A; Pain 6/10; ld1 10:34 BP 163 / 101; Pulse 68; Resp 18; Pulse Ox 100% on R/A; ld1 11:51 BP 155 / 96; Pulse 72; Resp 18; Pulse Ox 100% on R/A; Pain 5/10; ld1 09:12 Body Mass Index 34.67 (122.47 kg, 187.96 cm) ss MDM: 11:18 Patient medically screened. kdr 11:45 Data reviewed: vital signs, nurses notes, lab test result(s), radiologic studies. kdr / 09:17 Order name: Knee Left 3 View XRAY; Complete Time: 10:14 kdr 01/03 11:02 Order name: Extremity Nonvascular Complete; Complete Time: 11:17 EDMS Administered Medications: 09:29 Drug: Ketorolac 15 mg Route: IM; Site: right deltoid; ld1 11:52 Follow up: Response: No adverse reaction ld1 09:29 Drug: Lisinopril 20 mg Route: PO; ld1 11:52 Follow up: Response: Blood sugar is lowered ld1 09:29 Drug: cloNIDine 0.1 mg Route: PO; ld1 11:52 Follow up: Response: Blood pressure is lowered ld1 11:48 Drug: [place] (HYDROcodone-acetaminophen) (7.5 mg-325 mg) 1 tabs Route: PO; ld1 11:52 Follow up: Response: RASS: Alert and Calm (0) ld1 Disposition Summary: 01/03/22 11:18 Discharge Ordered Location: Home kdr Problem: new kdr Symptoms: have improved kdr Condition: Stable kdr Diagnosis - Pain in left knee kdr - Contusion of left knee kdr Followup: kdr - With: Private Physician - When: 2 - 3 days - Reason: If symptoms return, Further diagnostic work-up, Recheck today's complaints, Continuance of care, Re-evaluation by your physician Discharge Instructions: - Discharge Summary Sheet kdr - Contusion, [id number] kdr - Acute Knee Pain, Adult, [id number] kdr Forms: - Medication Reconciliation Form kdr - Thank You Letter kdr Prescriptions: - Ibuprofen 600 mg Oral Tablet - take 1 tablet by ORAL route every 6 hours As needed take with food; 30 tablet; kdr Refills: 0, Product Selection Permitted - Tramadol 50 mg Oral Tablet - take 1 tablet by ORAL route every 8 hours as needed; 12 tablet; Refills: 0, kdr Product Selection Permitted Signatures: Dispatcher [employer] EDMS Rian Odom MD MD kdr Abbi Crenshaw RN RN Nahomy Lowe RN RN ld1 Corrections: (The following items were deleted from the chart) 11:02 10:34 Extrmty Nonvasular [employer]+US.RAD.BRZ ordered. EDMS EDMS
[2022-01-03] MEDS ORDERED: HYDROCODONE/APAP 7.5/325 MG TAB ONE (11:56)
[2022-01-03 11:58] VITALS: TEMP 97.8
[2022-01-03 12:01] VITALS: O2SAT 100
[2022-01-03 12:02] VITALS: BP 155/96
== END 2022-01-03 11:53 | disposition home or self-care (01) ==
LOC: ER 08:57
DX: S80.02XA Contusion of left knee, initial encounter (principal); I10 Essential (primary) hypertension; Z88.0 Allergy status to penicillin
CPT/HCPCS: 76881; 96372; 99284

== ENCOUNTER 2022-02-06 15:25 | Inpatient (IN) | payer SELFPAY ==
[2022-02-06] MEDS ORDERED: ASPIRIN 81 MG CHEWABLE TABLET ONE (16:04)
--- NOTE | 2022-02-06 16:08 | RAD REPORT ---
EXAM DESCRIPTION: RAD - Chest Single View - 02/06/2022 4:01 pm CLINICAL HISTORY: CHEST PAIN Chest pain. COMPARISON: Chest Single View dated 03/28/2021; Chest Single View dated 11/23/2016 FINDINGS: Portable technique limits examination quality. The lungs are grossly clear. The heart is normal in size. No displaced fractures. IMPRESSION: No acute intrathoracic process suspected.
[2022-02-06 16:19] LABS: Absolute Lymphocytes (CBC) 1.6 K/uL (0.7-4.9); Hematocrit 41.8 % (39.6-49.0); Lymphocytes % 20.6 % (15.3-44.8); MPV 9.7 fL (7.6-11.3); RBC Red Blood Cell Count 4.92 M/uL (4.33-5.43)
[2022-02-06] MEDS ORDERED: ONDANSETRON 4 MG/2 ML VIAL ONE ×2 (16:23→17:27)
[2022-02-06] MEDS ORDERED: MORPHINE 4 MG/ML SYR ONE (16:23)
[2022-02-06 16:28] LABS: Protime INR 1.05
[2022-02-06 16:35] LABS: Albumin 3.5 g/dL (3.4-5.0); Bilirubin Direct 0.2 mg/dL (0-0.2); Bilirubin Total 0.5 mg/dL (0.2-1.0); Magnesium 1.9 mg/dL (1.8-2.4); Protein, Total 7.4 g/dL (6.4-8.2)
[2022-02-06 16:49] LABS: Troponin High Sensitivity 162.8 pg/mL (<58.9)
--- NOTE | 2022-02-06 17:00 | ER ---
Nurse's Notes [facility] Name: John Bustos Age: 46 yrs Sex: Male : 1975 Arrival Date: 02/06/2022 Time: 15:26 Bed 4 Private MD: Diagnosis: Chest pain, unspecified;Non ST elevation [place];Essential (primary) hypertension;Hypokalemia Presentation: 02/06 15:42 Chief complaint: Patient states: left sided chest since yesterday , worse today and now iw it's constant, has had similar chest pain in past but they couldn't figure out what was wrong , pain feels like pressure, +SOB , no cough , was vomiting last night. Coronavirus screen: Client presents with at least one sign or symptom that may indicate coronavirus-19. Ebola Screen: Patient negative for fever greater than or equal to 101.5 degrees Fahrenheit, and additional compatible Ebola Virus Disease symptoms Patient denies exposure to infectious person. Patient denies travel to an Ebola-affected area in the 21 days before illness onset. No symptoms or risks identified at this time. Initial Sepsis Screen: Does the patient meet any 2 criteria? No. Patient's initial sepsis screen is negative. Does the patient have a suspected source of infection? No. Patient's initial sepsis screen is negative. Risk Assessment: Do you want to hurt yourself or someone else? Patient reports no desire to harm self or others. Onset of symptoms was February 05, 2022. 15:42 Method Of Arrival: Wheelchair iw 15:42 Acuity: AC 3 iw Historical: - Allergies: 15:44 PENICILLINS; iw - Home Meds: 20:40 clonidine HCl 0.1 mg Oral tab 1 tab 3 times per day [Active]; Lisinopril 12.5 BID Oral kl [Active]; - PMHx: 15:44 Asthma; Hypertension; iw - PSHx: 15:44 cardiac cath, no stents placed; iw - Immunization history:: Client reports receiving the 2nd dose of the Covid vaccine. - Social history:: Smoking status: Patient reports the use of cigarette tobacco products. - Family history:: not pertinent. Screenin:00 Abuse screen: Denies threats or abuse. Nutritional screening: No deficits noted. 6 Tuberculosis screening: No symptoms or risk factors identified. Fall Risk IV access (20 points). Assessment: 15:57 General: Appears distressed, Behavior is anxious, restless. Pain: Complains of pain in jh6 left clavicle, anterior aspect of left upper chest, mid-sternal area and left breast Pain does not radiate. Pain currently is 10 out of 10 on a pain scale. Quality of pain is described as dull, sharp, Pain began Is continuous, Aggravated by palpation of l chest. Cardiovascular: Reports chest pain, Denies lightheadedness, nausea, shortness of breath, Heart tones present Capillary refill < 3 seconds Clubbing of nail beds is absent JVD is absent Patient's skin is warm and dry. Pulses are all present. Rhythm is regular Chest pain is described as Pain is 10 out of 10 on a pain scale. quality is clutching, sharp, is located in left chest wall. Respiratory: Airway is patent Trachea midline Respiratory effort is even, unlabored, Respiratory pattern is regular. 17:50 Reassessment: Mother, Yimi Martin, PHONE NUMBER [phone] cell, vg1 home. 18:30 Reassessment: Patient appears in no apparent distress at this time. Patient and/or vg1 family updated on plan of care and expected duration. Pain level reassessed. Patient is alert, oriented x 3, equal unlabored respirations, skin warm/dry/pink. rates chest pain 5/10. Vital Signs: 15:42 BP 163 / 110; Pulse 91; Resp 18; Temp 97.5; Pulse Ox 100% on R/A; Weight 124.74 kg; iw Height 6 ft. 2 in. (187.96 cm); Pain 8/10; 16:30 BP 178 / 91; Pulse 76; Resp 12; Pulse Ox 100% on R/A; vg1 17:00 BP 173 / 119; Pulse 90; Resp 16; Pulse Ox 99% on R/A; vg1 17:16 BP 206 / 185; Pulse 78; Resp 24; Pulse Ox 100% on R/A; vg1 17:24 BP 171 / 119; Pulse 95; Resp 19; Pulse Ox 100% on R/A; vg1 17:30 BP 169 / 105; Pulse 81; Resp 11; Pulse Ox 97% on R/A; vg1 17:45 BP 161 / 92; Pulse 70; Resp 14; Pulse Ox 100% on R/A; vg1 18:00 BP 169 / 121; Pulse 69; Resp 17; Pulse Ox 98% on R/A; vg1 18:15 BP 169 / 111; Pulse 76; Resp 17; Pulse Ox 100% on R/A; vg1 18:30 BP 182 / 105; Pulse 76; Resp 21; Pulse Ox 99% on R/A; vg1 18:45 BP 168 / 142; Pulse 73; Resp 20; Pulse Ox 100% on R/A; vg1 18:49 BP 170 / 111; Pulse 74; Resp 22; Pulse Ox 100% on R/A; vg1 20:35 BP 160 / 105; Pulse 62; Resp 18; Pulse Ox 100% on R/A; kl 15:42 Body Mass Index 35.31 (124.74 kg, 187.96 cm) iw ED Course: 15:26 Patient arrived in ED. as 15:28 Ashish Blackmon MD is Attending Physician. mayda 15:44 Triage completed. iw 15:44 Arm band placed on. iw 15:54 Yissel Brownlee RN is Primary Nurse. vg1 15:55 Client placed on continuous cardiac and pulse oximetry monitoring. NIBP monitoring jh6 applied. mortar maker on. 15:55 EKG done, by ED staff, reviewed by Ashish Blackmon MD. 6 16:00 Bed in low position. Call light in reach. Side rails up X 1. jh6 16:03 XRAY Chest (1 view) In Process Unspecified. EDMS 16:05 Initial lab(s) drawn, by in, sent to lab. Inserted saline lock: 20 gauge in right vg1 forearm, using aseptic technique. Blood collected. 16:58 Chaim Voss MD is Hospitalizing Provider. mayda 17:07 COVID swab sent to lab. vg1 19:24 Primary Nurse role handed off by Yissel Brownlee, RN mw2 20:33 No provider procedures requiring assistance completed. Patient admitted, IV remains in kl place. Patient maintains SpO2 saturation greater than 95% on room air. Administered Medications: 16:00 Drug: Aspirin Chewable Tablet 324 mg Route: PO; vg1 16:15 Drug: Zofran (Ondansetron) 4 mg Route: IVP; Site: right forearm; vg1 16:17 Drug: morphine 4 mg Route: IVP; Infused Over: 4 mins; Site: right forearm; vg1 17:30 Drug: Zofran (Ondansetron) 4 mg Route: IVP; Site: right forearm; vg1 17:32 Drug: Dilaudid (HYDROmorphone) 1 mg Route: IVP; Site: right forearm; vg1 17:34 Drug: Pepcid (famotidine) 20 mg Route: IVP; Site: right forearm; vg1 17:35 Drug: Potassium Effervescent Tablet 50 mEq Route: PO; vg1 17:35 Drug: PlaVIX (clopidogrel) 300 mg Route: PO; vg1 17:36 Drug: Lopressor (metoprolol) 5 mg Route: IVP; Site: right forearm; vg1 17:40 Drug: Norvasc (amlodipine) 10 mg Route: PO; vg1 17:45 Drug: Heparin ([place]-Bolus No thrombolytic) - HEParin 60 units/kg {Co-Signature: jh6 vg1 (Bridgette Nix RN).} Route: IVP; Site: right forearm; 17:48 Drug: Heparin ([place] Drip) 12 units/kg/hr - (HEParin 72481 units, D5W 500 ml) vg1 {Co-Signature: jh6 (Bridgette Nix RN).} Route: IV; Rate: calculated rate; Site: right forearm; 18:52 Drug: Lopressor (metoprolol TARTRATE) 50 mg Route: PO; vg1 18:53 Drug: Lopressor (metoprolol) 5 mg Route: IVP; Site: right forearm; vg1 19:15 Drug: Lopressor (metoprolol) 5 mg Route: IVP; Site: left antecubital; Medication: 20:40 VIS not applicable for this client. Outcome: 16:59 Decision to Hospitalize by Provider. [facility] 20:36 Admitted to Med/surg accompanied by tech, via wheelchair, room 224, with chart, Report kl called to [place] 20:37 Condition: stable kl 22:16 Patient left the ED. kl Signatures: Dispatcher [employer] EDMS Anum Manning RN RN kl Anderson, Corey, MD MD cha Martinez, Amelia as Williams, Irene, RN RN iw [place], [facility] Yissel Brownlee RN RN vg1 Hastedt, Jennifer, RN RN jh6 Bridgette Nix RN jh6
--- NOTE | 2022-02-06 17:00 | EDPHYS ---
Physician Documentation [facility] Name: John Bustos Age: 46 yrs Sex: Male : 1975 Arrival Date: 02/06/2022 Time: 15:26 Bed 4 Private MD: ED Physician Ashish Blackmon HPI: 02/06 16:03 This 46 yrs old Black Male presents to ER via Wheelchair with complaints of Chest Pain. mayda 16:03 The patient or guardian reports chest pain that is located primarily in the substernal mayda area, anterior chest wall. Onset: 2 day(s) ago. The pain does not radiate. Associated signs and symptoms: The patient has no apparent associated signs or symptoms. The chest pain is described as a pressure. Duration: The patient or guardian reports a single episode, that is still ongoing. Modifying factors: The symptoms are alleviated by remaining still, the symptoms are aggravated by activity, movement, palpation of area. Severity of pain: At its worst the pain was moderate in the emergency department the pain is unchanged. The patient has experienced a previous episode, last year. Historical: - Allergies: 15:44 PENICILLINS; iw - Home Meds: 20:40 clonidine HCl 0.1 mg Oral tab 1 tab 3 times per day [Active]; Lisinopril 12.5 BID Oral kl [Active]; - PMHx: 15:44 Asthma; Hypertension; iw - PSHx: 15:44 cardiac cath, no stents placed; iw - Immunization history:: Client reports receiving the 2nd dose of the Covid vaccine. - Social history:: Smoking status: Patient reports the use of cigarette tobacco products. - Family history:: not pertinent. ROS: 16:03 Constitutional: Negative for fever, chills, and weight loss, Eyes: Negative for injury, mayda pain, redness, and discharge, ENT: Negative for injury, pain, and discharge, Neck: Negative for injury, pain, and swelling, Respiratory: Negative for shortness of breath, cough, wheezing, and pleuritic chest pain, Abdomen/GI: Negative for abdominal pain, nausea, vomiting, diarrhea, and constipation, Back: Negative for injury and pain, : Negative for injury, bleeding, discharge, and swelling, MS/Extremity: Negative for injury and deformity, Skin: Negative for injury, rash, and discoloration, Neuro: Negative for headache, weakness, numbness, tingling, and seizure, Psych: Negative for depression, anxiety, suicide ideation, homicidal ideation, and hallucinations, Allergy/Immunology: Negative for hives, rash, and allergies, Endocrine: Negative for neck swelling, polydipsia, polyuria, polyphagia, and marked weight changes, Hematologic/Lymphatic: Negative for swollen nodes, abnormal bleeding, and unusual bruising. Exam: 16:03 Constitutional: This is a well developed, well nourished patient who is awake, alert, mayda and in no acute distress. Head/Face: Normocephalic, atraumatic. Eyes: Pupils equal round and reactive to light, extra-ocular motions intact. Lids and lashes normal. Conjunctiva and sclera are non-icteric and not injected. Cornea within normal limits. Periorbital areas with no swelling, redness, or edema. ENT: Nares patent. No nasal discharge, no septal abnormalities noted. Tympanic membranes are normal and external auditory canals are clear. Oropharynx with no redness, swelling, or masses, exudates, or evidence of obstruction, uvula midline. Mucous membranes moist. Neck: Trachea midline, no thyromegaly or masses palpated, and no cervical lymphadenopathy. Supple, full range of motion without nuchal rigidity, or vertebral point tenderness. No Meningismus. Cardiovascular: Regular rate and rhythm with a normal S1 and S2. No gallops, murmurs, or rubs. Normal PMI, no JVD. No pulse deficits. Respiratory: Lungs have equal breath sounds bilaterally, clear to auscultation and percussion. No rales, rhonchi or wheezes noted. No increased work of breathing, no retractions or nasal flaring. Abdomen/GI: Soft, non-tender, with normal bowel sounds. No distension or tympany. No guarding or rebound. No evidence of tenderness throughout. Back: No spinal tenderness. No costovertebral tenderness. Full range of motion. Male : Normal genitalia with no discharge or lesions. Skin: Warm, dry with normal turgor. Normal color with no rashes, no lesions, and no evidence of cellulitis. MS/ Extremity: Pulses equal, no cyanosis. Neurovascular intact. Full, normal range of motion. Neuro: Awake and alert, GCS 15, oriented to person, place, time, and situation. Cranial nerves II-XII grossly intact. Motor strength 5/5 in all extremities. Sensory grossly intact. Cerebellar exam normal. Normal gait. Psych: Awake, alert, with orientation to person, place and time. Behavior, mood, and affect are within normal limits. 16:03 Chest/axilla: Inspection: normal, Palpation: tenderness, that is mild, that is moderate, of the anterior aspect of right upper chest, anterior aspect of left upper chest, mid-sternal area, right breast and left breast. 16:03 ECG was reviewed by the Attending Physician. Vital Signs: 15:42 BP 163 / 110; Pulse 91; Resp 18; Temp 97.5; Pulse Ox 100% on R/A; Weight 124.74 kg; iw Height 6 ft. 2 in. (187.96 cm); Pain 8/10; 16:30 BP 178 / 91; Pulse 76; Resp 12; Pulse Ox 100% on R/A; vg1 17:00 BP 173 / 119; Pulse 90; Resp 16; Pulse Ox 99% on R/A; vg1 17:16 BP 206 / 185; Pulse 78; Resp 24; Pulse Ox 100% on R/A; vg1 17:24 BP 171 / 119; Pulse 95; Resp 19; Pulse Ox 100% on R/A; vg1 17:30 BP 169 / 105; Pulse 81; Resp 11; Pulse Ox 97% on R/A; vg1 17:45 BP 161 / 92; Pulse 70; Resp 14; Pulse Ox 100% on R/A; vg1 18:00 BP 169 / 121; Pulse 69; Resp 17; Pulse Ox 98% on R/A; vg1 18:15 BP 169 / 111; Pulse 76; Resp 17; Pulse Ox 100% on R/A; vg1 18:30 BP 182 / 105; Pulse 76; Resp 21; Pulse Ox 99% on R/A; vg1 18:45 BP 168 / 142; Pulse 73; Resp 20; Pulse Ox 100% on R/A; vg1 18:49 BP 170 / 111; Pulse 74; Resp 22; Pulse Ox 100% on R/A; vg1 20:35 BP 160 / 105; Pulse 62; Resp 18; Pulse Ox 100% on R/A; kl 15:42 Body Mass Index 35.31 (124.74 kg, 187.96 cm) iw MDM: 15:28 Patient medically screened. mayda 15:46 Patient medically screened. mayda 16:08 Differential diagnosis: abnormal EKG, anxiety, chest wall pain, congestive heart mayda failure costochondritis, esophagitis, pancreatitis, pneumothorax, stable angina, unstable angina. HEART Score: ECG: Non specific repolarization disturbance / LBTB / PM (1), Age: < or = 45 years (0), Risk Factors: > or = 3 Risk factors for atherosclerotic disease (2), [Hypercholesterolemia] [Hypertension] [+ Family HX] [Obesity] Troponin: < or = 1 x Normal Limit (0). The patient was given aspirin in the Emergency Department. The patient's deep vein thrombosis risk score was calculated as follows: Total Score: 0. This patient was found to be at low risk for a deep vein thrombosis by using the Well's assessment criteria. The patient's pulmonary embolism risk score was calculated as follows: Total Score: 0-2 points. This patient was found to be at low risk for a pulmonary embolism by using the Well's assessment criteria. RAKEL Risk Score: 1 - Three or more CAD risk factors, TOTAL SCORE = 1. Data reviewed: vital signs, nurses notes, lab test result(s), EKG, radiologic studies, plain films. Data interpreted: cardiac monitor: rate is 91 beats/min, rhythm is regular, Pulse oximetry: on room air is 100 %. Test interpretation: by ED physician or midlevel provider: ECG, plain radiologic studies. Counseling: I had a detailed discussion with the patient and/or guardian regarding: the historical points, exam findings, and any diagnostic results supporting the discharge/admit diagnosis, lab results, radiology results. 02/06 15:29 Order name: Basic Metabolic Panel; Complete Time: 16:56 mayda 02/06 15:29 Order name: CBC with Diff; Complete Time: 16:46 mayda 02/06 15:29 Order name: D-Dimer; Complete Time: 16:46 02/06 15:29 Order name: LFT's; Complete Time: 16:56 02/06 15:29 Order name: Magnesium; Complete Time: 16:56 02/06 15:29 Order name: NT PRO-BNP; Complete Time: 16:56 02/06 15:29 Order name: PT-INR; Complete Time: 16:46 02/06 15:29 Order name: Troponin HS; Complete Time: 16:56 [facility] 02/06 15:29 Order name: XRAY Chest (1 view); Complete Time: 16:46 [facility] 02/06 16:12 Order name: Lipase; Complete Time: 16:56 EDMS 02/06 17:01 Order name: SARS RAPID; Complete Time: 18:10 [facility] 02/06 17:15 Order name: Ptt, Activated; Complete Time: 18:10 vg1 02/06 15:29 Order name: EKG; Complete Time: 15:30 [facility] 02/06 15:29 Order name: Cardiac monitoring; Complete Time: 16:09 [facility] 02/06 15:29 Order name: EKG - Nurse/Tech; Complete Time: 16:09 [facility] 02/06 15:29 Order name: IV Saline Lock; Complete Time: 16:09 [facility] 02/06 15:29 Order name: Labs collected and sent; Complete Time: 16:09 [facility] 02/06 15:29 Order name: O2 Per Protocol; Complete Time: 15:54 [facility] 02/06 15:29 Order name: O2 Sat Monitoring; Complete Time: 15:54 [facility] EC:03 Rate is 90 beats/min. Rhythm is regular. QRS [place] is Normal. [place] interval is normal. QRS mayda interval is normal. QT interval is normal. No Q waves. T waves are Normal. No ST changes noted. Clinical impression: Abnormal EKG without significant change and LVH. Interpreted by me. Reviewed by me. Administered Medications: 16:00 Drug: Aspirin Chewable Tablet 324 mg Route: PO; vg1 16:15 Drug: Zofran (Ondansetron) 4 mg Route: IVP; Site: right forearm; vg1 16:17 Drug: morphine 4 mg Route: IVP; Infused Over: 4 mins; Site: right forearm; vg1 17:30 Drug: Zofran (Ondansetron) 4 mg Route: IVP; Site: right forearm; vg1 17:32 Drug: Dilaudid (HYDROmorphone) 1 mg Route: IVP; Site: right forearm; vg1 17:34 Drug: Pepcid (famotidine) 20 mg Route: IVP; Site: right forearm; vg1 17:35 Drug: Potassium Effervescent Tablet 50 mEq Route: PO; vg1 17:35 Drug: PlaVIX (clopidogrel) 300 mg Route: PO; vg1 17:36 Drug: Lopressor (metoprolol) 5 mg Route: IVP; Site: right forearm; vg1 17:40 Drug: Norvasc (amlodipine) 10 mg Route: PO; vg1 17:45 Drug: Heparin (IL-Bolus No thrombolytic) - HEParin 60 units/kg {Co-Signature: jh6 vg1 (Bridgette Nix RN).} Route: IVP; Site: right forearm; 17:48 Drug: Heparin (IL Drip) 12 units/kg/hr - (HEParin 95213 units, D5W 500 ml) vg1 {Co-Signature: jh6 (Bridgette Nix RN).} Route: IV; Rate: calculated rate; Site: right forearm; 18:52 Drug: Lopressor (metoprolol TARTRATE) 50 mg Route: PO; vg1 18:53 Drug: Lopressor (metoprolol) 5 mg Route: IVP; Site: right forearm; vg1 19:15 Drug: Lopressor (metoprolol) 5 mg Route: IVP; Site: left antecubital; kl Disposition Summary: 02/06/22 16:59 Hospitalization Ordered Hospitalization Status: Inpatient Admission mayda Provider: Chaim Voss cha Condition: Fair mayda Problem: new mayda Symptoms: have improved mayda Bed/Room Type: Standard mayda Location: Telemetry/MedSurg (Inpatient)(02/06/22 19:05) bd Room Assignment: 224(02/06/22 19:05) bd Diagnosis - Chest pain, unspecified mayda - Non ST elevation [place] mayda - Essential (primary) hypertension mayda - Hypokalemia mayda Forms: - Medication Reconciliation Form mayda - SBAR form mayda Signatures: Dispatcher [employer] EDMS Jinny Rosenthal bd Anum Manning RN RN kl Anderson, Corey, MD MD cha Williams, Irene, RN RN iw Garcia, Victoria, RN RN vg1 Goldie Casillas PA PA sb3 Bridgette Nix RN jh6 Corrections: (The following items were deleted from the chart) 16:11 15:59 LIPASE+C.LAB.BRZ ordered. EDMS EDMS 19:05 16:59 Intensive Care Unit mayda bd 19:05 16:59 mayda bd
[2022-02-06] MEDS ORDERED: HYDROMORPHONE HCL 1 MG/ML INJ ONE (17:27)
[2022-02-06] MEDS ORDERED: CLOPIDOGREL 75 MG TABLET ONE (17:28)
[2022-02-06] MEDS ORDERED: FAMOTIDINE 20 MG/2 ML VIAL IV ONE (17:28)
[2022-02-06] MEDS ORDERED: METOPROLOL TARTRATE 5 MG/5 ML INJ IV ONE ×3 (17:28→19:19)
[2022-02-06] MEDS ORDERED: POTASSIUM 25 MEQ EFFERV TAB ONE (17:30)
[2022-02-06] MEDS ORDERED: AMLODIPINE 10 MG TAB ONE (17:30)
[2022-02-06] MEDS ORDERED: HEPARIN 5000 UNIT/ML 1 ML VIAL ONE (17:30)
[2022-02-06] MEDS ORDERED: HEPARIN/D5W 25,000 UNIT/500 ML BAG IV ONE (17:31)
[2022-02-06 17:34] LABS: SARS-CoV-2 Antigen Rapid Res Negative (Negative)
[2022-02-06] MEDS ORDERED: METOPROLOL TAR 50 MG TAB ONE (18:59)
--- NOTE | 2022-02-06 19:07 | P.HP ---
Certification for Inpatient Patient admitted to: Inpatient With expected LOS: <2 Midnights Patient will require the following post-hospital care: None Practitioner: I am a practitioner with admitting privileges, knowledge of patient current condition, hospital course, and medical plan of care. Services: Services provided to patient in accordance with Admission requirements found in Title 42 Section 412.3 of the Code of Federal Regulations Patient History Date of Service: 02/06/22 Reason for admission: NSTEMI History of Present Illness: Patient is a 46-year-old male with hypertension who presented to the ED with complaints of left-sided chest pain. He reports the pain has been ongoing for about 24 hours now. He describes it as a sharp pain. It does not radiate. He states this morning he was driving to work and noticed his vision was blurring. He also reports vomiting several times last night. He also states that he has had a very stressful past week and has not been sleeping as much as usual. Patient was admitted here less than 1 year ago for chest pain in which troponin was mildly elevated, echo was normal, and ACS was ruled out. He reports that he had a cardiac cath about 2 years ago in which he did not require any stents. Patient states that he has not followed up with cardiology because he has not had medical insurance. He is noted to be hypertensive in the ED despite several rounds of antihypertensives. Labs significant for BNP 837 and troponin HS 162. EKG within normal limits. He was given 325 aspirin, morphine, Zofran, Lopressor, Plavix, Norvasc, and started on a heparin drip in the ED. Upon my assessment, patient reports improvement in his symptoms but is still experience headache and mild blurry vision. He is admitted for further evaluation and treatment. Allergies Penicillins Allergy (Severe, Verified 03/28/21 19:58) Hives/Rash Home medications list reviewed: Yes Home Medications: Albuterol Inhaler [Ventolin Inhaler*] 2 puff IH TID PRN #1 hfa.aer.ad 03/29/21 Ascorbic Acid [Vitamin C*] 500 mg PO TID #90 tablet 03/29/21 Aspirin [Aspirin EC 81 MG] 81 mg PO DAILY #30 tablet. 03/29/21 Atorvastatin Calcium [Lipitor] 20 mg PO BEDTIME #30 tab 03/29/21 Budesonide/Formoterol Fumarate [Symbicort 160-4.5 Mcg Inhaler] 2 puff IH BID #1 hfa.aer.ad 03/29/21 Famotidine [Pepcid*] 20 mg PO BID #60 tab 03/29/21 Metoprolol Tartrate [Lopressor*] 25 mg PO BID 6AM 6PM #60 tab 03/29/21 Thiamine HCl [Vitamin B-1*] 100 mg PO DAILY #30 tablet 03/29/21 Zinc Sulfate [Zinc Sulfate*] 220 mg PO DAILY #30 cap 03/29/21 cloNIDine HCL [Catapres*] 0.1 mg PO TID #90 tab 03/29/21 lisinopriL [Prinivil*] 10 mg PO BID #60 tab 03/29/21 predniSONE [Prednisone*] 20 mg PO SEECOM #21 tab 03/29/21 - Past Medical/Surgical History Diabetic: No -: HTN -: Obesity -: Asthma -: Cardiac cath Psychosocial/ Personal History: Patient works in operation management. - Family History Family History: Reviewed- Non-Contributory - Social History Smoking Status: Current some day smoker Alcohol use: Yes CD- Drugs: No Caffeine use: No Place of Residence: Home Review of Systems General: Sweats Eyes: Vision Change Respiratory: Shortness of Breath Cardiovascular: Chest Pain Physical Examination - Physical Exam General: Alert, In no apparent distress, Obese HEENT: Atraumatic, PERRLA, EOMI, Sclerae nonicteric Neck: Supple, 2+ carotid pulse no bruit, No LAD, Without JVD or thyroid abnormality Respiratory: Clear to auscultation bilaterally, Normal air movement Cardiovascular: Regular rate/rhythm, Normal S1 S2 Gastrointestinal: Normal bowel sounds, No tenderness Musculoskeletal: No tenderness Integumentary: No rashes Neurological: Normal speech, Normal strength at 5/5 x4 extr, Normal tone, Normal affect - Studies Laboratory Data (last 24 hrs) 02/06/22 16:05: APTT 31.7 02/06/22 16:05: PT 11.6, INR 1.05 02/06/22 16:05: WBC 8.0, Hgb 13.9, Hct 41.8, Plt Count 252 02/06/22 16:05: Sodium 142, Potassium 3.0 L, BUN 14, Creatinine 1.20, Glucose 108 H, Magnesium 1.9, Total Bilirubin 0.5, AST 19, ALT 30, Alkaline Phosphatase 82, Lipase 74 02/06/22 15:58: Lipase Cancelled Assessment and Plan - Problems (Diagnosis) (1) NSTEMI (non-ST elevated myocardial infarction) Current Visit: Yes Status: Acute (2) Hypertension Current Visit: Yes Status: Acute Qualifiers: Hypertension type: primary hypertension Qualified Code(s): I10 - Essential (primary) hypertension (3) Asthma Current Visit: Yes Status: Chronic Qualifiers: Asthma severity: unspecified severity Asthma persistence: unspecified Asthma complication type: uncomplicated Qualified Code(s): J45.909 - Unspecified asthma, uncomplicated (4) Hypokalemia Current Visit: Yes Status: Acute - Plan -NPO at midnight in case of cardiac catheterization -Cardiology consulted. Monitor on telemetry -Initial troponin HS elevated at 162. Repeat and trend. -Heparin drip started in ED. Continue and await cardiology recommendation. -Monitor blood pressure closely as it has been elevated despite several medications. Hydralazine ordered PRN. -Aspirin and atorvastatin daily. -Lipid panel and TSH pending. -Monitor and replete electrolytes per protocol, potassium was low and supplemented in ED. -Full code Discharge Plan: Home Plan to discharge in: 48 Hours - Advance Directives Does patient have a Living Will: No Does patient have a Durable POA for Healthcare: No - Code Status/Comfort Care Code Status Assessed: Yes (Full) Critical Care: No Time Spent Managing Pts Care (In Minutes): 50
[2022-02-06] MEDS ORDERED: HEPARIN/D5W 25,000 UNIT/500 ML BAG IV SCH (21:39)
[2022-02-06 22:11] VITALS: BMI 38.2
[2022-02-06] MEDS: NA CHLORIDE 0.9% 1,000 ML IV SCH (22:16)
[2022-02-06] MEDS: MORPHINE 4 MG/ML SYR IV PRN (22:16)
[2022-02-06 23:14] LABS: Specific Gravity >= 1.030 (1.005-1.030); Urine Bilirubin Negative (Negative); Urine Blood Negative (Negative); Urine Clarity Clear (Clear); Urine Color Yellow (Yellow); Urine Glucose Negative (Negative); Urine Protein Trace (Negative); Urine pH 5.5 (5.0-7.0)
[2022-02-06] MEDS: HYDRALAZINE HCL 20 MG/ML VIAL IV PRN (23:15)
[2022-02-06 23:46] LABS: Urine Bacteria <20 /HPF (<20); Urine RBC <5 /HPF (None Seen)
[2022-02-07] MEDS: ALBUTEROL 2.5 MG/3 ML NEB SOL NEB PRN (00:38)
[2022-02-07] MEDS: ACETAMINOPHEN 500 MG TAB PO PRN ×3 (00:51→15:56)
[2022-02-07 03:40] LABS: Absolute Lymphocytes (CBC) 2.6 K/uL (0.7-4.9); Hematocrit 40.2 % (39.6-49.0); MCV 84.7 fL (80-100); MPV 9.9 fL (7.6-11.3); RBC Red Blood Cell Count 4.75 M/uL (4.33-5.43)
[2022-02-07 04:09] LABS: Thyroid Stimulating Hormone 2.66 uIU/mL (0.360-3.740)
[2022-02-07 04:21] LABS: Potassium 2.9 mmol/L (3.5-5.1); Troponin High Sensitivity 144.2 pg/mL (<58.9)
[2022-02-07] MEDS: KCL 20 MEQ/100 mL IVPB 20 MEQ/100 ML BAG IV SCH ×3 (05:27→10:43)
[2022-02-07] MEDS: NA CHLORIDE 0.9% 1,000 ML IV SCH (10:42)
[2022-02-07] MEDS ORDERED: HEPA 1000U/500MLS 2,000 UNIT/1,000 ML BAG IV ONE (12:39)
[2022-02-07] MEDS ORDERED: FENTANYL CITR 100 MCG/2 ML ONE (12:39)
[2022-02-07] MEDS ORDERED: HEPARIN 5000 UNIT/ML 1 ML VIAL ONE (12:39)
[2022-02-07] MEDS ORDERED: VERAPAMIL HCL 10 MG/4 ML VIAL IV ONE (12:40)
[2022-02-07] MEDS ORDERED: LIDOCAINE 1% MPF 5 ML VIAL ONE (12:40)
[2022-02-07] MEDS ORDERED: HEPARIN 10,000 UNIT/10 ML VIAL IV ONE (12:40)
[2022-02-07] MEDS ORDERED: NITROGLYCERIN 100 MCG/ML SYR (for cath lab use only) IV ONE (12:40)
[2022-02-07] MEDS ORDERED: MIDAZOLAM HCL 2 MG/2 ML INJ ONE (12:41)
[2022-02-07] MEDS ORDERED: ATROPINE SULF 1 MG/10 ML SYR IV ONE (12:42)
--- NOTE | 2022-02-07 13:05 | EKG ---
Test Date: 2022-02-06 Test Time: 15:56:57 Rheumatology Nurse: JOHN MEASUREMENT RESULTS: Intervals: Rate: 90 UT: 148 QRSD: 86 QT: 370 QTc: 452 [place]: P: 60 UT: 148 QRS: 52 T: 200 INTERPRETIVE STATEMENTS: Normal sinus rhythm with sinus arrhythmia Possible Left atrial enlargement Left ventricular hypertrophy with repolarization abnormality Abnormal ECG Compared to ECG 03/28/2021 12:20:15 No significant changes Electronically Signed On 02-07-22 13:04:16 CDT by Terell Hardy
[2022-02-07] MEDS ORDERED: NA CHLORIDE 0.9% 500 ML ONE (13:11)
--- NOTE | 2022-02-07 13:45 | P.PN ---
Subjective Date of Service: 02/07/22 Chief Complaint: NSTEMI Subjective: Improving (Improving denies any chest pain nodule for a cardiac cath today) Review of Systems 10-point ROS is otherwise unremarkable Physical Examination - Vital Signs Temperature: 97.2 F Blood Pressure: 154/96 Pulse: 60 Respirations: 18 Pulse Ox (%): 97 - Physical Exam General: Alert, In no apparent distress, Oriented x3 Respiratory: Clear to auscultation bilaterally Cardiovascular: Normal pulses, Regular rate/rhythm - Studies Laboratory Data (last 24 hrs) 02/06/22 16:05: APTT 31.7 02/06/22 16:05: PT 11.6, INR 1.05 02/06/22 16:05: WBC 8.0, Hgb 13.9, Hct 41.8, Plt Count 252 02/06/22 16:05: Sodium 142, Potassium 3.0 L, BUN 14, Creatinine 1.20, Glucose 108 H, Magnesium 1.9, Total Bilirubin 0.5, AST 19, ALT 30, Alkaline Phosphatase 82, Lipase 74 02/06/22 15:58: Lipase Cancelled Assessment And Plan - Current Problems (Diagnosis) (1) NSTEMI (non-ST elevated myocardial infarction) Current Visit: Yes Status: Acute Plan: Patient is 46 admitted with a non-STEMI scheduled for a cardiac catheterization today he denies any chest pain hemodynamically stable also hypokalemic history of hypertension no ST-T changes on EKG
[2022-02-07] MEDS: MORPHINE 4 MG/ML SYR IV PRN (15:57)
[2022-02-07] MEDS ORDERED: POTASSIUM 25 MEQ EFFERV TAB PO ONE (21:00)
[2022-02-08] MEDS: NA CHLORIDE 0.9% 1,000 ML IV SCH ×2 (00:19→04:04)
[2022-02-08] MEDS: ALBUTEROL 2.5 MG/3 ML NEB SOL NEB PRN (00:45)
[2022-02-08] MEDS: HYDRALAZINE HCL 20 MG/ML VIAL IV PRN ×4 (01:09→16:49)
--- NOTE | 2022-02-08 01:11 | OP ---
Date of Procedure: 02/07/2022 Surgeon: ZHEN FLORES Procedures Performed: 1.Selective coronary angiogram. 2.Left heart catheterization. Indication: Non-ST elevation myocardial infarction. Access: Right radial artery 6-[place] closed with TR band. Complications: None. Estimated Blood Loss: Bleeding less than 10 mL. Anesthesia: Total sedation time was 25 minutes. Description Of Procedure: After risks, benefits, and alternatives were explained, the patient agreed to proceed with procedure and signed informed consent. The patient was brought into the cardiac cat heterization laboratory, prepped and draped in usual sterile fashion. I then accessed right radial a rtery using pediatric micropuncture kit, placed 6-[place] Slender sheath and took 5-[place] 4 cat heter into the aortic root, across the aortic valve into the LV, took LVEDP and pullback did not [address] any gradient and then engaged the left main and the right coronary artery, took standard views and removed the catheter and sheath and then placed TR band with good hemostasis. Findings: 1.Left main: Very large and normal. 2.LAD: Very large vessel with mild luminal irregularities throughout, normal diagonal branches and the artery wraps around the apex. 3.Left circumflex: Very large artery and it is a codominant circulation. There is a high OM branch that takes off close to the bifurcation with the LAD and it has proximal 50% stenosis, but it is a s mall vessel about 2-2.5 mm vessel. The left circumflex at the mid to distal has about 40% to 50% dale nosis with RAKEL-3 flow. 4.RCA: Large and codominant as well and distally at the PDA, there is about 40%-50% stenosis. 5.LVEDP elevated at 31 mmHg. Conclusion: 1.Moderate nonobstructive coronary artery disease as outlined above. 2.Elevated left ventricular end-diastolic pressure. Recommendation: Aggressive risk factor modification, blood pressure control and diuresis. SR/MODL Voice ID: [id number] Report ID: [id number]
[2022-02-08 03:34] LABS: Potassium 3.3 mmol/L (3.5-5.1)
[2022-02-08] MEDS ORDERED: POTASSIUM CL SA 10 MEQ TAB PO ONE (05:00)
[2022-02-08] MEDS: ACETAMINOPHEN 500 MG TAB PO PRN (05:24)
[2022-02-08] MEDS: ONDANSETRON 4 MG/2 ML VIAL IV PRN ×3 (06:28→16:49)
[2022-02-08] MEDS: ASPIRIN 81 MG CHEWABLE TABLET PO SCH (08:24)
[2022-02-08] MEDS: PROMETHAZINE 25 MG TABLET PO PRN ×2 (08:24→14:12)
[2022-02-08] MEDS: lisinopriL 20 MG TAB PO SCH ×2 (08:24→20:40)
[2022-02-08] MEDS ORDERED: HYDRALAZINE HCL 20 MG/ML VIAL IV ONE (12:13)
--- NOTE | 2022-02-08 12:44 | P.PN ---
Subjective Date of Service: 02/08/22 Chief Complaint: NSTEMI hypertension Patient is hypertensive complaining of nausea Review of Systems General: Weakness Gastrointestinal: Nausea Neurological: Other (Headache) Physical Examination - Vital Signs Temperature: 97.7 F Blood Pressure: 159/99 Pulse: 69 Respirations: 20 Pulse Ox (%): 98 - Physical Exam General: Alert, Mild distress Respiratory: Clear to auscultation bilaterally Cardiovascular: No edema, Normal S1 S2 Gastrointestinal: Normal bowel sounds, Soft and benign Assessment And Plan - Current Problems (Diagnosis) (1) NSTEMI (non-ST elevated myocardial infarction) Current Visit: Yes Status: Acute Plan: Patient is doing better s/p cardiac cath planing of headache elevated blood pressure and nausea meds IV antihypertensive medications continue to monitor u ntil stable patient ambulating elevated end-diastolic pressure add some Lasix Discharge Plan: Home Plan to discharge in: 24 Hours
[2022-02-08] MEDS ORDERED: FUROSEMIDE 20 MG/ 2ML VIAL IV ONE (13:55)
[2022-02-08] MEDS: cloNIDine HCL 0.1 MG TAB PO SCH (20:39)
[2022-02-09 06:51] LABS: Potassium 3.2 mmol/L (3.5-5.1)
[2022-02-09] MEDS: ASPIRIN 81 MG CHEWABLE TABLET PO SCH (08:21)
[2022-02-09] MEDS: lisinopriL 20 MG TAB PO SCH ×2 (08:21→21:26)
[2022-02-09] MEDS ORDERED: AMLODIPINE 5 MG TAB PO ONE (08:30)
[2022-02-09] MEDS ORDERED: POTASSIUM 25 MEQ EFFERV TAB PO ONE ×2 (09:00→16:00)
[2022-02-09] MEDS ORDERED: NA CHLORIDE 0.9% 250 ML IV ONE (12:34)
[2022-02-09] MEDS ORDERED: SODIUM CHL 0.9% 1000 ML BAG IV SCH (13:00)
[2022-02-09] MEDS: NA CHLORIDE 0.9% 1,000 ML IV SCH (13:44)
--- NOTE | 2022-02-09 13:56 | P.PN ---
Subjective Date of Service: 02/09/22 Doing well, but Cr elevated. S/p cardiac cath. Will hydrate and repeat renal function testing. Renal US if still elevated Review of Systems 10-point ROS is otherwise unremarkable Physical Examination - Vital Signs Temperature: 97.7 F Blood Pressure: 168/89 Pulse: 84 Respirations: 18 Pulse Ox (%): 97 - Physical Exam General: Alert, In no apparent distress HEENT: Atraumatic, PERRLA, EOMI Neck: Supple, JVD not distended Respiratory: Clear to auscultation bilaterally, Normal air movement Cardiovascular: Regular rate/rhythm, Normal S1 S2 Gastrointestinal: Normal bowel sounds, No tenderness Musculoskeletal: No tenderness Integumentary: No rashes Neurological: Normal speech, Normal tone, Normal affect Lymphatics: No axilla or inguinal lymphadenopathy - Studies Medications List Reviewed: Yes Assessment & Plan - Problems (Diagnosis) (1) Acute kidney injury due to contrast agent Status: Acute (2) Hypertension Status: Acute Qualifiers: Hypertension type: primary hypertension Qualified Code(s): I10 - Essential (primary) hypertension (3) Hypokalemia Status: Acute (4) NSTEMI (non-ST elevated myocardial infarction) Status: Acute (5) Asthma Status: Chronic Qualifiers: Asthma severity: unspecified severity Asthma persistence: unspecified Asthma complication type: uncomplicated Qualified Code(s): J45.909 - Unspecified asthma, uncomplicated - Plan Continue with aggressive IV hydration. Repeat renal function. Cardiac [place] patient is stable for discharge with cardiac meds. Monitor renal function in the morning and if it improves then discharge home with strict blood pressure control. Discharge Plan: Home Plan to discharge in: 24 Hours - Advance Directives Does patient have a Living Will: No Does patient have a Durable POA for Healthcare: No - Code Status/Comfort Care Code Status Assessed: Yes Code Status: Full Code Critical Care: No Time Spent Managing PTS Care (In Minutes): 35
[2022-02-09] MEDS: ACETAMINOPHEN 500 MG TAB PO PRN (14:06)
[2022-02-09 17:36] LABS: Potassium 3.3 mmol/L (3.5-5.1)
[2022-02-09] MEDS: ALBUTEROL 2.5 MG/3 ML NEB SOL NEB PRN (21:00)
[2022-02-09] MEDS: cloNIDine HCL 0.1 MG TAB PO SCH (21:26)
[2022-02-09] MEDS: MORPHINE 4 MG/ML SYR IV PRN (21:27)
[2022-02-09] MEDS ORDERED: POTASSIUM CL SA 10 MEQ TAB PO ONE (22:52)
--- NOTE | 2022-02-10 02:26 | CON ---
Date of Consultation: 02/07/2022 The patient was admitted to Dr. Voss on 02/06/2022. I saw the patient on 02/07/2022. Reason For Consultation: Non-STEMI. History Of Present Illness: Mr. Bustos is a 46-year-old, has a history of hypertension and dyslipide shade, came in with substernal chest pressure that had lasted about 2 hours. Potassium was 2.9. BNP w as 837. Troponin was positive. EKG showed LVH. The patient continues to have symptoms. Potassium has been supplemented. Denies nausea, vomiting, diaphoresis, PND, orthopnea, pedal edema, palpitatio n, or syncope. Denied any fever or chills. Past Medical History: As stated above. Allergies: INCLUDE PENICILLIN. Review of Systems: Negative. Social History: Negative. Family History: Negative. Medications: At home are none. Physical Examination: Vital Signs: Stable, afebrile. HEENT: Negative. Neck: Supple with no bruit. Chest: Clear. Cardiac: Revealed regular rhythm and rate. No murmurs, gallops, or rubs. Abdomen: Benign. Extremities: Revealed no clubbing, cyanosis, or edema. Diagnostic Data: As stated earlier. Impression And Plan: This is a gentleman with hypertension, dyslipidemia, chest pain, positive tropo carol. I think we need to do a left heart catheterization to define his coronary anatomy and continue present regimen. The patient understands the risks and the benefits of the procedure, and he agrees to proceed. Potassium needs to be supplemented. An echocardiogram is reasonable. FABIOLA/ARTHUR Voice ID: [id number] Report ID: [id number]
[2022-02-10] MEDS: NA CHLORIDE 0.9% 1,000 ML IV SCH ×2 (02:40→15:40)
[2022-02-10 06:25] LABS: Absolute Lymphocytes (CBC) 2.2 K/uL (0.7-4.9); Hematocrit 42.8 % (39.6-49.0); Lymphocytes % 25.1 % (15.3-44.8); MCV 85.9 fL (80-100); MPV 10.1 fL (7.6-11.3); RBC Red Blood Cell Count 4.99 M/uL (4.33-5.43)
[2022-02-10 06:34] LABS: Magnesium 1.9 mg/dL (1.8-2.4); Potassium 3.6 mmol/L (3.5-5.1)
[2022-02-10] MEDS ORDERED: POTASSIUM CL SA 10 MEQ TAB PO ONE (09:00)
[2022-02-10] MEDS: lisinopriL 20 MG TAB PO SCH ×2 (09:09→16:21)
[2022-02-10] MEDS: ASPIRIN 81 MG CHEWABLE TABLET PO SCH (09:09)
[2022-02-10] MEDS: cloNIDine HCL 0.1 MG TAB PO SCH (16:20)
[2022-02-10 19:34] VITALS: O2SAT 95
[2022-02-11 08:18] VITALS: BP 168/89; TEMP 97.7
== END 2022-02-10 17:52 | disposition home or self-care (01) | DRG 281 ==
LOC: ER 15:25 → ERHOLD 18:55 → 2ND 21:10
PROVIDERS: ADMIT Internal Medicine Nephrology; ATTEND Hospitalist
PROC: B2011ZZ Plain Radiography of Multiple Coronary Arteries using Low Osmolar Contrast (ICD-10-PCS; principal; 2022-02-07)
PROC: 4A023N7 Measurement of Cardiac Sampling and Pressure, Left Heart, Percutaneous Approach (ICD-10-PCS; 2022-02-07)
DX: I21.4 Non-ST elevation (NSTEMI) myocardial infarction (principal); N17.9 Acute kidney failure, unspecified; I10 Essential (primary) hypertension; E66.9 Obesity, unspecified; Z68.35 Body mass index [BMI] 35.0-35.9, adult; E87.6 Hypokalemia; T50.8X5A Adverse effect of diagnostic agents, initial encounter; Y92.239 Unspecified place in hospital as the place of occurrence of the external cause; E78.5 Hyperlipidemia, unspecified; J45.909 Unspecified asthma, uncomplicated; I25.10 Atherosclerotic heart disease of native coronary artery without angina pectoris; F17.210 Nicotine dependence, cigarettes, uncomplicated; Z88.0 Allergy status to penicillin; Z20.822 Contact with and (suspected) exposure to COVID-19
CPT/HCPCS: 36415; 71045; 80048; 80061; 80076; 81001; 83690; 83735; 83880; 84100; 84132; 84443; 84484; 85025; 85379; 85610; 85730; 87086; 87088; 87811; 93005; 93458; 99285; C1893; J0360; J1170; J1644; J1940; J2250; J2405; J3010; J3480; J7030; J7040; J7050; Q0169; Q9966